=== PATIENT | female | born 1995 | race Caucasian/White ===

== ENCOUNTER 2016-04-17 18:10 | Emergency (ER) | payer MEDICAID ==
--- NOTE | 2016-04-17 19:06 | EDM.PDOC ---
ED HPI GI/ABDOMINAL - General Chief Complaint: Abdominal Pain Stated Complaint: ABD PAIN Time Seen by Provider: 04/17/16 18:45 Source: Reports: Patient History Limitations: Reports: No limitations - History of Present Illness INITIAL COMMENTS - FREE TEXT/NARRATIVE: 21-year-old female who has had lower abdominal pain for 2 years. She's had it ever since she had her tubal ligation. It's lower abdominal, intermittent and was very bad today so she wanted it checked. No diarrhea or nausea vomiting. No radiation of the pain to the back. No dysuria. She was seen in the clinic last week by her primary provider and a gallbladder ultrasound and other tests are being set up for. She does not look to be in any distress at all. Location: other (Lower abdomen, suprapubic area) Quality: Reports: ache, stabbing Severity: mild - Related Data Allergies/ADRs: Allergies Allergy/AdvReac Type Severity Reaction Status Date / Time Fish Containing Products Allergy Hives Verified 04/17/16 19:12 Latex, Natural Rubber Allergy Hives Verified 04/17/16 19:12 Home Meds: Home Meds Nitrofurantoin Macrocrystal [Macrodantin] 1 tab PO BID 04/17/16 [History] Ondansetron [Ondansetron] 1 tab PO Q8H PRN 04/17/16 [History] Past Medical History - Past Health History Medical/Surgical History: Denies Medical/Surgical History Other Hematologic History: microcytic anemia - Past Surgical History HEENT Surgical History: Reports: Adenoidectomy, Tonsillectomy Female Surgical History: Reports: Tubal ligation Social & Family History - Tobacco Use Smoking Status *Q: Current Every Day Smoker Years of Tobacco use: 7 Packs/Tins Daily: 0.5 Used Tobacco, but Quit: No Second Hand Smoke Exposure: Yes - Alcohol Use Days Per Week of Alcohol Use: 0 Number of Drinks Per Day: 3 Total Drinks Per Week: 0 - Recreational Drug Use Recreational Drug Use: No ED ROS GENERAL - Review of Systems Review Of Systems: See Below Constitutional: Denies: fever, chills HEENT: Reports: Other (Advanced dental caries) Respiratory: Denies: shortness of breath Cardiovascular: Denies: Chest pain GI/Abdominal: Reports: Abdominal pain. Denies: Constipation, Diarrhea, Nausea, Vomiting : Reports: no symptoms Neurological: Denies: headache ED EXAM, GI/ABD - Physical Exam Exam: See Below Exam Limited By: No limitations General Appearance: alert, no apparent distress Eyes: bilateral: normal appearance Respiratory/Chest: no respiratory distress, lungs clear Cardiovascular: regular rate, rhythm GI/Abdominal: soft, tenderness (Patient reacts with tenderness to palpation across the lower abdomen but no focal tenderness or guarding) Course - Vital Signs Last Recorded V/S: Last Vital Signs Temp 97.9 F 04/17/16 19:12 Pulse 93 04/17/16 19:12 Resp 16 04/17/16 19:12 BP 121/79 04/17/16 19:12 Pulse Ox 97 04/17/16 19:12 - Orders/Labs/Meds Labs: Laboratory Tests 04/17/16 04/17/16 04/17/16 Range/Units 18:59 19:00 19:08 WBC 5.5 (4.5-11.0) K/uL RBC 4.26 (3.30-5.50) M/uL Hgb 10.9 L (12.0-15.0) g/dL Hct 34.8 L (36.0-48.0) % MCV 82 (80-98) fL MCH 26 L (27-31) pg MCHC 31 L (32-36) % Plt Count 143 L (150-400) K/uL Neut % (Auto) 55 (36-66) % Lymph % (Auto) 32 (24-44) % [place] % (Auto) 11 H (2-6) % Eos % (Auto) 1 L (2-4) % Baso % (Auto) 1 (0-1) % Sodium (140-148) mmol/L Potassium (3.6-5.2) mmol/L Chloride (100-108) mmol/L Carbon Dioxide (21-32) mmol/L Anion Gap (5.0-14.0) mmol/L BUN (7-18) mg/dL Creatinine (0.6-1.0) mg/dL Est Cr Clr Drug Dosing mL/min Estimated GFR (MDRD) (>60) Glucose (74-106) mg/dL Calcium (8.5-10.1) mg/dL Total Bilirubin (0.2-1.0) mg/dL AST (15-37) U/L ALT (12-78) U/L Alkaline Phosphatase (46-116) U/L Total Protein (6.4-8.2) g/dL Albumin (3.4-5.0) g/dL Globulin (2.3-3.5) g/dL Albumin/Globulin Ratio (1.2-2.2) Urine Color Yellow Urine Appearance Slightly cloudy Urine pH 6.0 (4.5-8.0) Ur Specific [place] 1.025 (1.008-1.030) Urine Protein Negative (NEGATIVE) mg/dL Urine Glucose (UA) Normal (NEGATIVE) mg/dL Urine Ketones Negative (NEGATIVE) mg/dL Urine Occult Blood Negative (NEGATIVE) Urine Nitrite Negative (NEGATIVE) Urine Bilirubin Negative (NEGATIVE) Urine Urobilinogen Normal (NORMAL) mg/dL Ur Leukocyte Esterase Negative (NEGATIVE) Urine RBC 0-5 (0-5) Urine WBC 0-5 (0-5) Ur Epithelial Cells Moderate Amorphous Sediment Not seen Urine Bacteria Many Urine Mucus Moderate Urine HCG, Qual Negative Urine Opiates Screen (NEGATIVE) Ur Oxycodone Screen (NEGATIVE) Urine Methadone Screen (NEGATIVE) Ur Propoxyphene Screen (NEGATIVE) Ur Barbiturates Screen (NEGATIVE) Ur Tricyclics Screen (NEGATIVE) Ur Phencyclidine Scrn (NEGATIVE) Ur Amphetamine Screen (NEGATIVE) U Methamphetamines Scrn (NEGATIVE) Urine MDMA Screen (NEGATIVE) U Benzodiazepines Scrn (NEGATIVE) U Cocaine Metab Screen (NEGATIVE) U Marijuana (THC) Screen (NEGATIVE) 04/17/16 04/17/16 Range/Units 19:08 19:09 WBC (4.5-11.0) K/uL RBC (3.30-5.50) M/uL Hgb (12.0-15.0) g/dL Hct (36.0-48.0) % MCV (80-98) fL MCH (27-31) pg MCHC (32-36) % Plt Count (150-400) K/uL Neut % (Auto) (36-66) % Lymph % (Auto) (24-44) % [place] % (Auto) (2-6) % Eos % (Auto) (2-4) % Baso % (Auto) (0-1) % Sodium 142 (140-148) mmol/L Potassium 3.7 (3.6-5.2) mmol/L Chloride 106 (100-108) mmol/L Carbon Dioxide 27 (21-32) mmol/L Anion Gap 8.8 (5.0-14.0) mmol/L BUN 14 D (7-18) mg/dL Creatinine 0.8 D (0.6-1.0) mg/dL Est Cr Clr Drug Dosing 82.53 mL/min Estimated GFR (MDRD) > 60 (>60) Glucose 69 L (74-106) mg/dL Calcium 8.9 (8.5-10.1) mg/dL Total Bilirubin 0.3 (0.2-1.0) mg/dL AST 18 (15-37) U/L ALT 24 (12-78) U/L Alkaline Phosphatase 51 (46-116) U/L Total Protein 7.8 (6.4-8.2) g/dL Albumin 3.9 (3.4-5.0) g/dL Globulin 3.9 H (2.3-3.5) g/dL Albumin/Globulin Ratio 1.0 L (1.2-2.2) Urine Color Urine Appearance Urine pH (4.5-8.0) Ur Specific [place] (1.008-1.030) Urine Protein (NEGATIVE) mg/dL Urine Glucose (UA) (NEGATIVE) mg/dL Urine Ketones (NEGATIVE) mg/dL Urine Occult Blood (NEGATIVE) Urine Nitrite (NEGATIVE) Urine Bilirubin (NEGATIVE) Urine Urobilinogen (NORMAL) mg/dL Ur Leukocyte Esterase (NEGATIVE) Urine RBC (0-5) Urine WBC (0-5) Ur Epithelial Cells Amorphous Sediment Urine Bacteria Urine Mucus Urine HCG, Qual Urine Opiates Screen Negative (NEGATIVE) Ur Oxycodone Screen Negative (NEGATIVE) Urine Methadone Screen Negative (NEGATIVE) Ur Propoxyphene Screen Negative (NEGATIVE) Ur Barbiturates Screen Negative (NEGATIVE) Ur Tricyclics Screen Negative (NEGATIVE) Ur Phencyclidine Scrn Negative (NEGATIVE) Ur Amphetamine Screen Negative (NEGATIVE) U Methamphetamines Scrn Negative (NEGATIVE) Urine MDMA Screen Negative (NEGATIVE) U Benzodiazepines Scrn Negative (NEGATIVE) U Cocaine Metab Screen Negative (NEGATIVE) U Marijuana (THC) Screen Negative (NEGATIVE) - Re-Assessments/Exams Free Text/Narrative Re-Assessment/Exam: 04/17/16 19:05 A UA was obtained, also urine drug screen and urine will be run. CBC and CMP also drawn. 04/17/16 19:43 UA had some bacteria but also epithelial cells, no WBCs or evidence of formation. Likely contamination but then she offered that she was diagnosed with a urinary tract infection on Monday and was given antibiotics, only took one dose yesterday. All her other labs are normal. Copies of the labs were made and she was asked to call her primary tomorrow and continue the antibiotics she was prescribed. Departure - Departure Time of Disposition: 19:56 Disposition: Home, Self-Care 01 Condition: good Clinical Impression: Abdominal pain Qualifiers: Abdominal location: lower abdomen, unspecified Qualified Code(s): R10.30 - Lower abdominal pain, unspecified Instructions: Abdominal Pain, Adult Referrals: Mike Gonzalez MD [Primary Care Provider] - Forms: ED Department Discharge Care Plan Goals: Call your regular provider tomorrow to discuss further testing for your abdominal pain. Take your antibiotic as prescribed.
[2016-04-17 19:11] VITALS: BP 121/79
== END 2016-04-17 19:56 | disposition home or self-care (01) ==
LOC: JP.ED 18:10
DX: R10.30 Lower abdominal pain, unspecified (principal); F17.210 Nicotine dependence, cigarettes, uncomplicated; Z91.040 Latex allergy status; Z79.899 Other long term (current) drug therapy
CPT/HCPCS: 36415; 80053; 80305; 81001; 81025; 85025; 99282; 99284

== ENCOUNTER 2016-12-27 12:25 | Inpatient (IN) | payer MEDICAID ==
[2016-12-27] MEDS ORDERED: Lactated Ringers 1,000 ML IV SCH ×2 (14:00→17:00)
[2016-12-27] MEDS ORDERED: Piperacillin/Tazobactam 4.5 GM in Sodium Chloride 0.9% 100 ML IV SCH (14:00)
[2016-12-27] MEDS ORDERED: Ibuprofen 600 MG Tab PO ONE (14:01)
--- NOTE | 2016-12-27 14:03 | EDM.PDOC ---
ED HPI GENERAL MEDICAL PROBLEM - General Chief Complaint: General Stated Complaint: CHEST PAIN Time Seen by Provider: 12/27/16 13:48 Source of Information: Reports: Patient, RN Notes Reviewed History Limitations: Reports: No Limitations - History of Present Illness INITIAL COMMENTS - FREE TEXT/NARRATIVE: 21-year-old female presents emergency department day complaint of fever and ill feeling, she's been sick for about 48 hours and seems to be progressively worse her biggest complaint is body aches and chills she does complain of some chest discomfort and difficulty breathing - Related Data Allergies Allergy/AdvReac Type Severity Reaction Status Date / Time Fish Containing Products Allergy Hives Verified 04/17/16 19:12 Latex, Natural Rubber Allergy Hives Verified 04/17/16 19:12 Home Meds: Home Meds Ibuprofen [Advil] 2 tab PO Q4H 12/27/16 [History] Past Medical History Cardiovascular History: Reports: Angina Genitourinary History: Reports: UTI, Recurrent 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: Musculoskeletal History: Reports: Fracture Neurological History: Reports: Concussion Other Neuro History: 2010 CONCUSSION FELL OUT OF HAY LOFT Other Hematologic History: microcytic anemia - Past Surgical History HEENT Surgical History: Reports: Adenoidectomy, Tonsillectomy Female Surgical History: Reports: Tubal Ligation Social & Family History - Tobacco Use Smoking Status *Q: Current Some Day Smoker Years of Tobacco use: 13 Packs/Tins Daily: 0.5 Used Tobacco, but Quit: No Second Hand Smoke Exposure: Yes - Caffeine Use Caffeine Use: Reports: Soda - Alcohol Use Days Per Week of Alcohol Use: 0 Number of Drinks Per Day: 3 Total Drinks Per Week: 0 - Recreational Drug Use Recreational Drug Use: No ED ROS GENERAL - Review of Systems Review Of Systems: See Below Constitutional: Reports: Fever, Chills, Weakness HEENT: Reports: No Symptoms Respiratory: Reports: Shortness of Breath Cardiovascular: Reports: Chest Pain GI/Abdominal: Reports: Abdominal Pain : Reports: No Symptoms (Yet) Musculoskeletal: Reports: Other Skin: Reports: No Symptoms (Body aches) Neurological: Reports: No Symptoms ED EXAM, GENERAL - Physical Exam Exam: See Below Free Text/Narrative:: General: Ill-appearing female, alert and oriented x3 HEENT: head is atraumatic normocephalic, eyes pupils equal round reactive to light, sclera clear no conjunctivitis appreciated. Ears tympanic membranes clear and berman landmarks and light reflex are present bilaterally canals are clear. Nose no septal deviation, nares are clear, no blood present. Mouth mucosa is moist and pink no erythema or exudate noted in soft palate, tongue is midline uvula is midline , dentition is intact. Neck: Supple no thyromegaly no tracheal deviation. Nodes: Cervical nodes subclavicular nodes nontender no palpable lymphadenopathy noted. Lungs: clear to auscultation bilaterally with symmetrical respirations, no adventitious noise appreciated. CV: Regular rate and rhythm S1 and S2 appreciated no murmurs rubs or gallops noted. Abdomen: Soft, generalized tenderness to palpation, no palpable masses or organomegaly appreciated, no distention no guarding bowel sounds are present, Neuro: Cranial nerves II through XII grossly intact Skin: Warm and dry, intact Extremities: No lower extremity edema appreciated, pedal pulse is +2. Course - Vital Signs Last Recorded V/S: Last Vital Signs Temp 99.3 F 12/27/16 14:55 Pulse 122 H 12/27/16 14:55 Resp 14 12/27/16 14:55 BP 119/66 12/27/16 14:55 Pulse Ox 98 12/27/16 14:55 - Orders/Labs/Meds Orders: Active Orders 24 hr Category Date Time Status Vital Signs [RC] Q1H Care 12/27/16 13:53 Active CULTURE BLOOD [BC] Urgent Lab 12/27/16 13:35 Received CULTURE BLOOD [BC] Urgent Lab 12/27/16 13:40 Received CULTURE URINE [RM] Urgent Lab 12/27/16 15:00 Uncollected Lactated Ringers [Ringers, Lactated] 1,000 ml Med 12/27/16 14:00 Active IV ASDIRECTED Blood Culture x2 Reflex Set [OM.PC] Urgent Oth 12/27/16 13:53 Ordered Medication Orders Lactated Ringer's (Ringers, Lactated) 1,000 mls @ 999 mls/hr IV ASDIRECTED NICOLA Last Admin: 12/27/16 14:28 Dose: 999 mls/hr Labs: Laboratory Tests 12/27/16 12/27/16 12/27/16 Range/Units 13:35 13:35 13:35 WBC 13.7 H (4.5-11.0) K/uL RBC 4.17 (3.30-5.50) M/uL Hgb 11.3 L (12.0-15.0) g/dL Hct 35.0 L (36.0-48.0) % MCV 84 (80-98) fL MCH 27 (27-31) pg MCHC 32 (32-36) % Plt Count 117 L (150-400) K/uL Neut % (Auto) 86 H (36-66) % Lymph % (Auto) 5 L (24-44) % [place] % (Auto) 9 H (2-6) % Eos % (Auto) 0 L (2-4) % Baso % (Auto) 0 (0-1) % Puncture Site ABG pH (7.350-7.450) ABG pCO2 (35.0-42.0) mmHg ABG pO2 (75.0-100.0) mmHg ABG HCO3 (22.0-26.0) mmol/L ABG Total CO2 (21.0-25.0) mmol/L ABG O2 Saturation (95.0-98.0) % ABG O2 Content (15.0-23.0) %vol ABG Base Excess mm/L ABG Hemoglobin (12.0-16.0) g/dL ABG Oxyhemoglobin % ABG Carboxyhemoglobin (0.0-1.6) % ABG Methemoglobin % Christ Test O2 Delivery Device Sodium 136 L (140-148) mmol/L Potassium 3.3 L (3.6-5.2) mmol/L Chloride 100 (100-108) mmol/L Carbon Dioxide 24 (21-32) mmol/L Anion Gap 15.3 H (5.0-14.0) mmol/L BUN 10 (7-18) mg/dL Creatinine 0.9 (0.6-1.0) mg/dL Est Cr Clr Drug Dosing 69.83 mL/min Estimated GFR (MDRD) > 60 (>60) Glucose 96 (74-106) mg/dL Lactic Acid 2.2 H (0.4-2.0) mmol/L Calcium 8.9 (8.5-10.1) mg/dL Total Bilirubin 1.1 H D (0.2-1.0) mg/dL AST 15 (15-37) U/L ALT 16 (12-78) U/L Alkaline Phosphatase 78 (46-116) U/L C-Reactive Protein 17.24 H (0.0-0.3) mg/dL Total Protein 7.4 (6.4-8.2) g/dL Albumin 3.3 L (3.4-5.0) g/dL Globulin 4.1 H (2.3-3.5) g/dL Albumin/Globulin Ratio 0.8 L (1.2-2.2) Urine Color Urine Appearance Urine pH (4.5-8.0) Ur Specific [place] (1.008-1.030) Urine Protein (NEGATIVE) mg/dL Urine Glucose (UA) (NEGATIVE) mg/dL Urine Ketones (NEGATIVE) mg/dL Urine Occult Blood (NEGATIVE) Urine Nitrite (NEGATIVE) Urine Bilirubin (NEGATIVE) Urine Urobilinogen (NORMAL) mg/dL Ur Leukocyte Esterase (NEGATIVE) Urine RBC (0-5) Urine WBC (0-5) Ur Epithelial Cells Amorphous Sediment Urine Bacteria Urine Mucus Ketones (NEGATIVE) 12/27/16 12/27/16 12/27/16 Range/Units 14:17 14:17 14:22 WBC (4.5-11.0) K/uL RBC (3.30-5.50) M/uL Hgb (12.0-15.0) g/dL Hct (36.0-48.0) % MCV (80-98) fL MCH (27-31) pg MCHC (32-36) % Plt Count (150-400) K/uL Neut % (Auto) (36-66) % Lymph % (Auto) (24-44) % [place] % (Auto) (2-6) % Eos % (Auto) (2-4) % Baso % (Auto) (0-1) % Puncture Site Rt brachial ABG pH 7.446 (7.350-7.450) ABG pCO2 33.2 L (35.0-42.0) mmHg ABG pO2 144.0 H (75.0-100.0) mmHg ABG HCO3 22.5 (22.0-26.0) mmol/L ABG Total CO2 20.5 L (21.0-25.0) mmol/L ABG O2 Saturation 99.1 H (95.0-98.0) % ABG O2 Content 14.8 L (15.0-23.0) %vol ABG Base Excess -0.7 mm/L ABG Hemoglobin 10.6 L (12.0-16.0) g/dL ABG Oxyhemoglobin 98.0 % ABG Carboxyhemoglobin 0.6 (0.0-1.6) % ABG Methemoglobin 0.5 % Christ Test Passed O2 Delivery Device Room air Sodium (140-148) mmol/L Potassium (3.6-5.2) mmol/L Chloride (100-108) mmol/L Carbon Dioxide (21-32) mmol/L Anion Gap (5.0-14.0) mmol/L BUN (7-18) mg/dL Creatinine (0.6-1.0) mg/dL Est Cr Clr Drug Dosing mL/min Estimated GFR (MDRD) (>60) Glucose (74-106) mg/dL Lactic Acid (0.4-2.0) mmol/L Calcium (8.5-10.1) mg/dL Total Bilirubin (0.2-1.0) mg/dL AST (15-37) U/L ALT (12-78) U/L Alkaline Phosphatase (46-116) U/L C-Reactive Protein (0.0-0.3) mg/dL Total Protein (6.4-8.2) g/dL Albumin (3.4-5.0) g/dL Globulin (2.3-3.5) g/dL Albumin/Globulin Ratio (1.2-2.2) Urine Color Brown Urine Appearance Cloudy Urine pH 5.0 (4.5-8.0) Ur Specific [place] 1.020 (1.008-1.030) Urine Protein 30 H (NEGATIVE) mg/dL Urine Glucose (UA) Normal (NEGATIVE) mg/dL Urine Ketones 15 H (NEGATIVE) mg/dL Urine Occult Blood Large (NEGATIVE) Urine Nitrite Positive H (NEGATIVE) Urine Bilirubin Small (NEGATIVE) Urine Urobilinogen 4 (NORMAL) mg/dL Ur Leukocyte Esterase Large (NEGATIVE) Urine RBC 20-30 H (0-5) Urine WBC Packed H (0-5) Ur Epithelial Cells Few Amorphous Sediment Few Urine Bacteria Many Urine Mucus Few Ketones Negative (NEGATIVE) Meds: Medications Generic Name Dose Route Start Last Admin Trade Name Freq PRN Reason Stop Dose Admin Lactated Ringer's 1,000 mls @ 999 mls/hr 12/27/16 14:00 12/27/16 14:28 Ringers, Lactated IV 999 mls/hr ASDIRECTED NICOLA Administration Discontinued Medications Generic Name Dose Route Start Last Admin Trade Name Selam PRN Reason Stop Dose Admin Hydromorphone HCl 1 mg 12/27/16 14:34 12/27/16 14:38 Dilaudid IVPUSH 12/27/16 14:35 1 mg ONETIME ONE Administration Piperacillin/Tazobactam/ 100 mls @ 200 mls/hr 12/27/16 14:30 12/27/16 14:43 Dextrose 4.5 gm/ Premix IV 12/27/16 14:59 200 mls/hr ONETIME ONE Administration Ibuprofen 600 mg 12/27/16 14:01 12/27/16 14:29 Motrin PO 12/27/16 14:02 600 mg ONETIME ONE Administration Ondansetron HCl 4 mg 12/27/16 14:34 12/27/16 14:38 Zofran IVPUSH 12/27/16 14:35 4 mg ONETIME ONE Administration Departure - Departure Time of Disposition: 15:14 Disposition: Home, Self-Care 01 Condition: Good Clinical Impression: Sepsis due to urinary tract infection Sepsis Qualifiers: Sepsis type: sepsis due to unspecified organism Qualified Code(s): A41.9 - Sepsis, unspecified organism - Discharge Information Referrals: PCP,None [Primary Care Provider] - Forms: ED Department Discharge - My Orders Last 24 Hours: My Active Orders 12/27/16 13:35 CULTURE BLOOD [BC] Urgent 12/27/16 13:40 CULTURE BLOOD [BC] Urgent 12/27/16 13:53 Vital Signs [RC] Q1H Blood Culture x2 Reflex Set [OM.PC] Urgent 12/27/16 14:00 Lactated Ringers [Ringers, Lactated] 1,000 ml IV ASDIRECTED 12/27/16 15:00 CULTURE URINE [RM] Urgent - Assessment/Plan Last 24 Hours: My Active Orders 12/27/16 13:35 CULTURE BLOOD [BC] Urgent 12/27/16 13:40 CULTURE BLOOD [BC] Urgent 12/27/16 13:53 Vital Signs [RC] Q1H Blood Culture x2 Reflex Set [OM.PC] Urgent 12/27/16 14:00 Lactated Ringers [Ringers, Lactated] 1,000 ml IV ASDIRECTED 12/27/16 15:00 CULTURE URINE [RM] Urgent Plan: Assessment Acuity = acute Site and laterality = sepsis with positive streptococcal pharyngitis Etiology = probable urinary source Manifestations = fever, chills Location of injury = Home Lab values = WBC elevated at 13.7 consistent leukocytosis ABG 7.44 PCO2 33.20- 144 bicarbonate 22.3 consistent with acute respiratory alkalosis primary potassium low at 2.3 consistent hypokalemia lactic acid elevated at 2.2 consistent lactic acidosis CRP elevated at 17.2 consistent with inflammatory response albumin low at 3.3 consistent with hypoalbuminemia urinalysis reveals 30 protein consistent proteinuria 15 ketones consistent ketonuria positive for nitrates 20-30 rbc's consists with hematuria and packed wbc's consists with pyuria negative ketones chest x-ray shows no acute process blood cultures and urine cultures are pending Plan 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
[2016-12-27] MEDS ORDERED: Piperacillin/Tazobactam/Dext 4.5 GM in Premix Bag 1 BAG IV ONE (14:30)
--- NOTE | 2016-12-27 14:32 | CR ---
Chest 1V Frontal INDICATION: fever FINDINGS: Comparison exams are not available. Negative AP portable chest x-ray.
[2016-12-27] MEDS ORDERED: Ondansetron 4 MG/2 ML SDV IVPUSH ONE (14:34)
[2016-12-27] MEDS ORDERED: HYDROmorphone 1 MG/ML Syringe IVPUSH ONE (14:34)
[2016-12-27] MEDS ORDERED: Lactated Ringers 1,000 ML IV ONE (15:44)
--- NOTE | 2016-12-27 16:06 | PCM.HP ---
H&P History of Present Illness - General Date of Service: 12/27/16 Admit Problem/Dx: Admission Diagnosis/Problem Admission Diagnosis/Problem Sepsis Source of Information: Patient, Provider, RN Notes Reviewed History Limitations: Reports: No Limitations - History of Present Illness Initial Comments - Free Text/Narative: Ms. Quiñones is a 21-year-old woman who is admitted through the emergency department with fever and weakness secondary to complicated urinary tract infection with sepsis. She felt well until yesterday morning, when she got out of bed noted that she felt extremely weak and fell in the bathroom. Since then has had persistent weakness associated with fever and chills. She presented to the clinic today for evaluation and was referred to the emergency department. On evaluation she was noted to be tachycardic with an elevated lactic acid level. Evaluation remarkable for complicated urinary tract infection, probable pyelonephritis and sepsis. 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: Musculoskeletal History: Reports: Fracture Neurological History: Reports: Concussion Other Neuro History: 2010 CONCUSSION FELL OUT OF [facility] Endocrine/Metabolic History: Reports: Diabetes, Gestational Other Hematologic History: microcytic anemia - Past Surgical History HEENT Surgical History: Reports: Adenoidectomy, Tonsillectomy Female Surgical History: Reports: Tubal Ligation Social & Family History - Tobacco Use Smoking Status *Q: Current Some Day Smoker Years of Tobacco use: 13 Packs/Tins Daily: 0.5 Used Tobacco, but Quit: No Second Hand Smoke Exposure: Yes - Caffeine Use Caffeine Use: Reports: Soda - Alcohol Use Days Per Week of Alcohol Use: 0 Number of Drinks Per Day: 3 Total Drinks Per Week: 0 - Recreational Drug Use Recreational Drug Use: No H&P Review of Systems - Review of Systems: Review Of Systems: See Below General: Reports: Fever, Chills, Weakness, Diaphoresis, Decreased Appetite HEENT: Reports: No Symptoms Pulmonary: Reports: No Symptoms Cardiovascular: Reports: No Symptoms Gastrointestinal: Reports: Abdominal Pain, Anorexia. Denies: Black Stool, Bloody Stool, Constipation, Diarrhea, Difficulty Swallowing, Distension Genitourinary: Reports: Dysuria, Frequency, Urgency. Denies: Incontinence, Hematuria, Retention Musculoskeletal: Reports: Back Pain Skin: Reports: No Symptoms Psychiatric: Reports: No Symptoms Neurological: Reports: No Symptoms Hematologic/Lymphatic: Reports: No Symptoms Immunologic: Reports: No Symptoms Exam - Exam Exam: See Below - Vital Signs Vital Signs: Last Vital Signs Temp 100 F 12/27/16 15:46 Pulse 110 H 12/27/16 15:46 Resp 14 12/27/16 15:46 BP 103/67 12/27/16 15:46 Pulse Ox 99 12/27/16 15:46 Weight: 125 lb - Exam Quality Assessment: DVT Prophylaxis General: Alert, Oriented, Cooperative, Moderate Distress HEENT: Conjunctiva Clear, Hearing Intact, Normal Nasal Septum, Posterior Pharynx Clear, Pupils Equal. No: Mucosa Moist & [place] Neck: Supple, Trachea Midline Lungs: Clear to Auscultation, Normal Respiratory Effort Cardiovascular: Regular Rate, Regular Rhythm, Normal S1, Normal S2. No: Systolic Murmur, Diastolic Murmur GI/Abdominal Exam: Normal Bowel Sounds, Soft, No Organomegaly, Tender. No: Distended, Guarding, Rigid, Rebound Back Exam: Normal Inspection, Full Range of Motion, CVA Tenderness (R) Extremities: Normal Inspection, Non-Tender, No Pedal Edema Skin: Warm, Dry, Intact Neurological: Cranial Nerves Intact, Strength Equal Bilateral, Normal Speech, Normal Tone, Sensation Intact. No: Focal Deficit Neuro Extensive - Mental Status: Alert, Oriented x3, Normal Mood/Affect, Normal Cognition, Memory Intact - Patient Data Lab Results Last 24 hrs: Laboratory Results - last 24 hr 12/27/16 12/27/16 12/27/16 Range/Units 13:35 13:35 13:35 WBC 13.7 H (4.5-11.0) K/uL RBC 4.17 (3.30-5.50) M/uL Hgb 11.3 L (12.0-15.0) g/dL Hct 35.0 L (36.0-48.0) % MCV 84 (80-98) fL MCH 27 (27-31) pg MCHC 32 (32-36) % Plt Count 117 L (150-400) K/uL Neut % (Auto) 86 H (36-66) % Lymph % (Auto) 5 L (24-44) % [place] % (Auto) 9 H (2-6) % Eos % (Auto) 0 L (2-4) % Baso % (Auto) 0 (0-1) % Puncture Site ABG pH (7.350-7.450) ABG pCO2 (35.0-42.0) mmHg ABG pO2 (75.0-100.0) mmHg ABG HCO3 (22.0-26.0) mmol/L ABG Total CO2 (21.0-25.0) mmol/L ABG O2 Saturation (95.0-98.0) % ABG O2 Content (15.0-23.0) %vol ABG Base Excess mm/L ABG Hemoglobin (12.0-16.0) g/dL ABG Oxyhemoglobin % ABG Carboxyhemoglobin (0.0-1.6) % ABG Methemoglobin % Christ Test O2 Delivery Device Sodium 136 L (140-148) mmol/L Potassium 3.3 L (3.6-5.2) mmol/L Chloride 100 (100-108) mmol/L Carbon Dioxide 24 (21-32) mmol/L Anion Gap 15.3 H (5.0-14.0) mmol/L BUN 10 (7-18) mg/dL Creatinine 0.9 (0.6-1.0) mg/dL Est Cr Clr Drug Dosing 69.83 mL/min Estimated GFR (MDRD) > 60 (>60) Glucose 96 (74-106) mg/dL Lactic Acid 2.2 H (0.4-2.0) mmol/L Calcium 8.9 (8.5-10.1) mg/dL Total Bilirubin 1.1 H D (0.2-1.0) mg/dL AST 15 (15-37) U/L ALT 16 (12-78) U/L Alkaline Phosphatase 78 (46-116) U/L C-Reactive Protein 17.24 H (0.0-0.3) mg/dL Total Protein 7.4 (6.4-8.2) g/dL Albumin 3.3 L (3.4-5.0) g/dL Globulin 4.1 H (2.3-3.5) g/dL Albumin/Globulin Ratio 0.8 L (1.2-2.2) Urine Color Urine Appearance Urine pH (4.5-8.0) Ur Specific [place] (1.008-1.030) Urine Protein (NEGATIVE) mg/dL Urine Glucose (UA) (NEGATIVE) mg/dL Urine Ketones (NEGATIVE) mg/dL Urine Occult Blood (NEGATIVE) Urine Nitrite (NEGATIVE) Urine Bilirubin (NEGATIVE) Urine Urobilinogen (NORMAL) mg/dL Ur Leukocyte Esterase (NEGATIVE) Urine RBC (0-5) Urine WBC (0-5) Ur Epithelial Cells Amorphous Sediment Urine Bacteria Urine Mucus Ketones (NEGATIVE) 12/27/16 12/27/16 12/27/16 Range/Units 14:17 14: 14:22 WBC (4.5-11.0) K/uL RBC (3.30-5.50) M/uL Hgb (12.0-15.0) g/dL Hct (36.0-48.0) % MCV (80-98) fL MCH (27-31) pg MCHC (32-36) % Plt Count (150-400) K/uL Neut % (Auto) (36-66) % Lymph % (Auto) (24-44) % [place] % (Auto) (2-6) % Eos % (Auto) (2-4) % Baso % (Auto) (0-1) % Puncture Site Rt brachial ABG pH 7.446 (7.350-7.450) ABG pCO2 33.2 L (35.0-42.0) mmHg ABG pO2 144.0 H (75.0-100.0) mmHg ABG HCO3 22.5 (22.0-26.0) mmol/L ABG Total CO2 20.5 L (21.0-25.0) mmol/L ABG O2 Saturation 99.1 H (95.0-98.0) % ABG O2 Content 14.8 L (15.0-23.0) %vol ABG Base Excess -0.7 mm/L ABG Hemoglobin 10.6 L (12.0-16.0) g/dL ABG Oxyhemoglobin 98.0 % ABG Carboxyhemoglobin 0.6 (0.0-1.6) % ABG Methemoglobin 0.5 % Christ Test Passed O2 Delivery Device Room air Sodium (140-148) mmol/L Potassium (3.6-5.2) mmol/L Chloride (100-108) mmol/L Carbon Dioxide (21-32) mmol/L Anion Gap (5.0-14.0) mmol/L BUN (7-18) mg/dL Creatinine (0.6-1.0) mg/dL Est Cr Clr Drug Dosing mL/min Estimated GFR (MDRD) (>60) Glucose (74-106) mg/dL Lactic Acid (0.4-2.0) mmol/L Calcium (8.5-10.1) mg/dL Total Bilirubin (0.2-1.0) mg/dL AST (15-37) U/L ALT (12-78) U/L Alkaline Phosphatase (46-116) U/L C-Reactive Protein (0.0-0.3) mg/dL Total Protein (6.4-8.2) g/dL Albumin (3.4-5.0) g/dL Globulin (2.3-3.5) g/dL Albumin/Globulin Ratio (1.2-2.2) Urine Color Brown Urine Appearance Cloudy Urine pH 5.0 (4.5-8.0) Ur Specific [place] 1.020 (1.008-1.030) Urine Protein 30 H (NEGATIVE) mg/dL Urine Glucose (UA) Normal (NEGATIVE) mg/dL Urine Ketones 15 H (NEGATIVE) mg/dL Urine Occult Blood Large (NEGATIVE) Urine Nitrite Positive H (NEGATIVE) Urine Bilirubin Small (NEGATIVE) Urine Urobilinogen 4 (NORMAL) mg/dL Ur Leukocyte Esterase Large (NEGATIVE) Urine RBC 20-30 H (0-5) Urine WBC Packed H (0-5) Ur Epithelial Cells Few Amorphous Sediment Few Urine Bacteria Many Urine Mucus Few Ketones Negative (NEGATIVE) Result Diagrams: 12/27/16 13:35 12/27/16 13:35 Peña Results Last 24 hrs: Microbiology 12/27/16 14:03 Influenza Type A Antigen Screen - Final Nasopharyngeal Swab - Nare, Left NEGATIVE INFLUENZA A VIRUS AG Influenza Type B Antigen Screen - Final NEGATIVE INFLUENZA B VIRUS AG 12/27/16 14:04 Group A Streptococcus Rapid Screen - Final Throat Positive Strep A Screen *Q Meaningful Use (ADM) - VTE *Q VTE Criteria *Q: - VTE Risk Assess *Q Each Risk Factor Represents 1 Point: Obesity ( BMI > 25 kg/m2), Sepsis Total Score 1 Point Risk Factors: 2 Each Risk Factor Represents 2 Points: None Total Score 2 Point Risk Factors: 0 Each Risk Factor Represents 3 Points: None Total Score 3 Point Risk Factors: 0 Each Risk Factor Represents 5 Points: None Total Score 5 Point Risk Factors: 0 Venous Thromboembolism Risk Factor Score *Q: 2 - Stroke *Q Stroke Criteria *Q: - AMI *Q AMI Criteria *Q: Problem List Initiated/Reviewed/Updated: Yes Orders Last 24hrs: Active Orders 24 hr Category Date Time Status Patient Status Manage Transfer [TRANSFER] Routine ADT 12/27/16 15:49 Active Vital Signs [RC] Q1H Care 12/27/16 13:53 Active CULTURE BLOOD [BC] Urgent Lab 12/27/16 13:35 Received CULTURE BLOOD [BC] Urgent Lab 12/27/16 13:40 Received CULTURE URINE [RM] Urgent Lab 12/27/16 15:30 Received Lactated Ringers [Ringers, Lactated] 1,000 ml Med 12/27/16 14:00 Active IV ASDIRECTED Lactated Ringers [Ringers, Lactated] 1,000 ml Med 12/27/16 15:44 Active IV BOLUS Blood Culture x2 Reflex Set [OM.PC] Urgent Oth 12/27/16 13:53 Ordered Resuscitation Status Routine Resus Stat 12/27/16 15:51 Ordered Medication Orders Lactated Ringer's (Ringers, Lactated) 1,000 mls @ 999 mls/hr IV ASDIRECTED [facility] Last Admin: 12/27/16 14:28 Dose: 999 mls/hr Lactated Ringer's (Ringers, Lactated) 1,000 mls @ 999 mls/hr IV BOLUS ONE Stop: 12/27/16 16:44 Last Admin: 12/27/16 15:58 Dose: 999 mls/hr Assessment/Plan Comment:: ASSESSMENT AND PLAN COMPLICATED URINARY TRACT INFECTION WITH SEPSIS-probable pyelonephritis, symptoms present over the past 36 hours. Evidence of sepsis with tachycardia, fever, elevated white count, and modest elevation in lactic acid level. -Blood and urine cultures obtained in the ED -Vigorous IV fluid replacement per protocol, 30 mL/kg -Recheck lactic acid level later tonight and again in a.m. -Admit to the ICU until stable -Broad-spectrum antibiotic coverage; IV Zosyn and levofloxacin, pending culture results MAINTENANCE ISSUES -DVT prophylaxis; ambulation -GI prophylaxis; not indicated -Robb catheter; not indicated -Nutrition; regular diet -Nicotine dependence; 14 mg nicotinic patch CODE STATUS-FULL CODE ADMISSION STATUS-patient will be admitted to inpatient status, expect at least a 2 night hospital stay for evaluation and management of problems as outlined above. At the time of this admission I do not reasonably expected evaluation and management of this problem will require more than a 96 hour hospital stay. DISPOSITION-anticipate discharge to home after the hospital stay. PRIMARY CARE PROVIDER-
[2016-12-27] MEDS ORDERED: Lactated Ringers 500 ML IV SCH (16:41)
[2016-12-27] MEDS ORDERED: oxyCODONE 5 MG Tab PO PRN (16:41)
[2016-12-27] MEDS ORDERED: Sodium Chloride 0.9% 10 ML Syringe FLUSH PRN (16:41)
[2016-12-27] MEDS ORDERED: Piperacillin/Tazobactam 3.375 GM in Sodium Chloride 0.9% 50 ML IV SCH (16:41)
[2016-12-27] MEDS: Levofloxacin/Dextrose 5%-Water 750 MG in Premix Bag 1 BAG IV SCH (17:13)
[2016-12-27] MEDS: Piperacillin/Tazobactam/Dext 3.375 GM in Premix Bag 1 BAG IV SCH (20:09)
[2016-12-27] MEDS: Lactated Ringers 1,000 ML IV SCH (20:41)
[2016-12-27] MEDS: Ibuprofen 400 MG Tab PO PRN (21:07)
[2016-12-27] MEDS: Acetaminophen 325 MG Tab PO PRN (23:56)
[2016-12-27] MEDS: Ondansetron 4 MG/2 ML SDV IV PRN (23:59)
[2016-12-28] MEDS: Piperacillin/Tazobactam/Dext 3.375 GM in Premix Bag 1 BAG IV SCH ×4 (01:09→19:56)
[2016-12-28] MEDS: Lactated Ringers 1,000 ML IV SCH (04:39)
[2016-12-28] MEDS: Acetaminophen 325 MG Tab PO PRN ×2 (06:19→13:06)
[2016-12-28] MEDS: Ondansetron 4 MG/2 ML SDV IV PRN ×2 (08:47→14:13)
[2016-12-28] MEDS ORDERED: Lactated Ringers 1,000 ML IV SCH (10:00)
--- NOTE | 2016-12-28 10:10 | PCM.PN ---
- General Info Date of Service: 12/28/16 Subjective Update: Ms. Quiñones is modestly improved since admission, white blood cell count has normalized, persistent temperature elevations. Abdominal pain and flank pain have modestly improved. Vital signs have stablized with resolution of sepsis. - Review of Systems General: Reports: Fever, Weakness Pulmonary: Reports: No Symptoms Cardiovascular: Reports: No Symptoms Gastrointestinal: Reports: Abdominal Pain, Decreased Appetite, Nausea, Vomiting Genitourinary: Reports: Flank Pain - Patient Data Vitals - Most Recent: Last Vital Signs Temp 98.3 F 12/28/16 08:40 Pulse 89 12/28/16 08:40 Resp 14 12/28/16 08:40 BP 111/66 12/28/16 08:40 Pulse Ox 94 L 12/28/16 08:40 Weight - Most Recent: 122 lb 14.4 oz I&O - Last 24 Hours: Intake & Output 12/27/16 12/28/16 12/28/16 22:59 06:59 14:59 Intake Total 2350 4695 50 Output Total 800 Balance 2350 3895 50 Lab Results Last 24 Hours: Laboratory Results - last 24 hr 12/27/16 12/28/16 12/28/16 Range/Units 21:06 05:50 05:50 WBC 7.5 (4.5-11.0) K/uL RBC 3.67 (3.30-5.50) M/uL Hgb 10.1 L (12.0-15.0) g/dL Hct 31.1 L (36.0-48.0) % MCV 85 (80-98) fL MCH 28 (27-31) pg MCHC 33 (32-36) % Plt Count 88 L (150-400) K/uL Neut % (Auto) 77 H (36-66) % Lymph % (Auto) 13 L (24-44) % [place] % (Auto) 10 H (2-6) % Eos % (Auto) 0 L (2-4) % Baso % (Auto) 0 (0-1) % Sodium (140-148) mmol/L Potassium (3.6-5.2) mmol/L Chloride (100-108) mmol/L Carbon Dioxide (21-32) mmol/L Anion Gap (5.0-14.0) mmol/L BUN (7-18) mg/dL Creatinine (0.6-1.0) mg/dL Est Cr Clr Drug Dosing mL/min Estimated GFR (MDRD) (>60) Glucose (74-106) mg/dL Lactic Acid 2.1 H 1.1 (0.4-2.0) mmol/L Calcium (8.5-10.1) mg/dL 12/28/16 Range/Units 05:50 WBC (4.5-11.0) K/uL RBC (3.30-5.50) M/uL Hgb (12.0-15.0) g/dL Hct (36.0-48.0) % MCV (80-98) fL MCH (27-31) pg MCHC (32-36) % Plt Count (150-400) K/uL Neut % (Auto) (36-66) % Lymph % (Auto) (24-44) % [place] % (Auto) (2-6) % Eos % (Auto) (2-4) % Baso % (Auto) (0-1) % Sodium 139 L (140-148) mmol/L Potassium 4.1 (3.6-5.2) mmol/L Chloride 106 (100-108) mmol/L Carbon Dioxide 28 (21-32) mmol/L Anion Gap 9.1 (5.0-14.0) mmol/L BUN 8 (7-18) mg/dL Creatinine 0.8 (0.6-1.0) mg/dL Est Cr Clr Drug Dosing 78.56 mL/min Estimated GFR (MDRD) > 60 (>60) Glucose 105 (74-106) mg/dL Lactic Acid (0.4-2.0) mmol/L Calcium 8.5 (8.5-10.1) mg/dL Med Orders - Current: Current Medications Acetaminophen (Tylenol) 650 mg PO Q4H PRN PRN Reason: Pain (Mild 1-3)/fever Last Admin: 12/28/16 06:19 Dose: 650 mg Levofloxacin/Dextrose 750 mg/ (Premix) 150 mls @ 100 mls/hr IV Q24H [facility] Last Admin: 12/27/16 17:13 Dose: 100 mls/hr Piperacillin/Tazobactam/ (Dextrose 3.375 gm/ Premix) 50 mls @ 100 mls/hr IV Q6H [facility] Last Admin: 12/28/16 07:33 Dose: 100 mls/hr Lactated Ringer's (Ringers, Lactated) 1,000 mls @ 75 mls/hr IV ASDIRECTED [facility] Ibuprofen (Motrin) 400 mg PO Q6H PRN PRN Reason: Pain (mild 1-3) Last Admin: 12/27/16 21:07 Dose: 400 mg Ondansetron HCl (Zofran) 4 mg IV Q4H PRN PRN Reason: Nausea/Vomiting Last Admin: 12/28/16 08:47 Dose: 4 mg Oxycodone HCl (Oxycodone) 5 mg PO Q4H PRN PRN Reason: Pain (moderate 4-6) Last Admin: 12/28/16 07:42 Dose: 5 mg Sodium Chloride (Saline Flush) 10 ml FLUSH ASDIRECTED PRN PRN Reason: Keep Vein Open Discontinued Medications Hydromorphone HCl (Dilaudid) 1 mg IVPUSH ONETIME ONE Stop: 12/27/16 14:35 Last Admin: 12/27/16 14:38 Dose: 1 mg Lactated Ringer's (Ringers, Lactated) 1,000 mls @ 999 mls/hr IV ASDIRECTED [facility] Last Admin: 12/27/16 14:28 Dose: 999 mls/hr Piperacillin/Tazobactam/ (Dextrose 4.5 gm/ Premix) 100 mls @ 200 mls/hr IV ONETIME ONE Stop: 12/27/16 14:59 Last Admin: 12/27/16 14:43 Dose: 200 mls/hr Lactated Ringer's (Ringers, Lactated) 1,000 mls @ 999 mls/hr IV BOLUS ONE Stop: 12/27/16 16:44 Last Admin: 12/27/16 15:58 Dose: 999 mls/hr Lactated Ringer's (Ringers, Lactated) 500 mls @ 999 mls/hr IV .BOLUS NICOLA Stop: 12/27/16 17:42 Lactated Ringer's (Ringers, Lactated) 1,000 mls @ 125 mls/hr IV ASDIRECTED [facility] Last Admin: 12/28/16 04:39 Dose: 125 mls/hr Lactated Ringer's (Ringers, Lactated) 1,000 mls @ 250 mls/hr IV ASDIRECTED NICOLA Stop: 12/27/16 21:01 Last Admin: 12/27/16 17:04 Dose: 250 mls/hr Ibuprofen (Motrin) 600 mg PO ONETIME ONE Stop: 12/27/16 14:02 Last Admin: 12/27/16 14:29 Dose: 600 mg Ondansetron HCl (Zofran) 4 mg IVPUSH ONETIME ONE Stop: 12/27/16 14:35 Last Admin: 12/27/16 14:38 Dose: 4 mg - Exam Quality Assessment: DVT Prophylaxis General: Alert, Oriented, Cooperative Lungs: Clear to Auscultation, Normal Respiratory Effort Cardiovascular: Regular Rate, Regular Rhythm, No Murmurs GI/Abdominal Exam: Soft, Tender. No: Distended, Guarding, Rigid, Rebound Extremities: Non-Tender, No Pedal Edema Skin: Warm, Dry - Problem List Review Problem List Initiated/Reviewed/Updated: Yes - My Orders Last 24 Hours: My Active Orders 12/27/16 15:51 Resuscitation Status Routine 12/27/16 16:41 Patient Status [ADT] Routine Ambulate [RC] QID Cardiac Monitoring [RC] .As Directed Intake and Output [RC] QSHIFT Notify Provider Vital Signs [RC] ASDIRECTED Peripheral IV Care [RC] . DIRECTED Up With Assistance [RC] ASDIRECTED Up to Chair [RC] QID VTE/DVT Education [RC] Per Unit Routine Vital Signs [RC] Q2H Acetaminophen [Tylenol] 650 mg PO Q4H PRN Ibuprofen [Motrin] 400 mg PO Q6H PRN Ondansetron [Zofran] 4 mg IV Q4H PRN Sodium Chloride 0.9% [Saline Flush] 10 ml FLUSH ASDIRECTED PRN oxyCODONE 5 mg PO Q4H PRN Peripheral IV Insertion Adult [OM.PC] Routine 12/27/16 17:00 Levofloxacin/Dextrose 5%-Water [Levaquin in D5W 750 MG/150 ML] 750 mg Premix Bag 1 bag IV Q24H 12/27/16 20:00 Piperacillin/Tazobactam/Dext [Zosyn in Dextrose Iso-Osmotic 3.375 GM] 3.375 gm Premix Bag 1 bag IV Q6H 12/27/16 Lunch Regular Diet [DIET] 12/28/16 10:00 Lactated Ringers [Ringers, Lactated] 1,000 ml IV ASDIRECTED 12/29/16 05:00 BASIC METABOLIC PANEL,BMP [CHEM] Timed CBC WITH AUTO DIFF [HEME] Timed HEPATIC FUNCTION PANEL,HFP [CHEM] Timed - Plan Plan:: ASSESSMENT AND PLAN COMPLICATED URINARY TRACT INFECTION WITH SEPSIS-improved since admission with resolution of sepsis. Vital signs have stabilized, she has had persistent intermittent temperature elevations. -Blood and urine cultures obtained in the ED -Decrease IV rate to 75 mL per hour -Change to medical surgical status -Broad-spectrum antibiotic coverage; IV Zosyn and levofloxacin, pending culture results MAINTENANCE ISSUES -DVT prophylaxis; ambulation -GI prophylaxis; not indicated -Robb catheter; not indicated -Nutrition; regular diet -Nicotine dependence; 14 mg nicotinic patch CODE STATUS-FULL CODE ADMISSION STATUS-patient will be admitted to inpatient status, expect at least a 2 night hospital stay for evaluation and management of problems as outlined above. At the time of this admission I do not reasonably expected evaluation and management of this problem will require more than a 96 hour hospital stay. DISPOSITION-anticipate discharge to home after the hospital stay. PRIMARY CARE PROVIDER-
[2016-12-28] MEDS ORDERED: Nicotine Polacrilex 2 MG Gum CHEW PRN (10:19)
[2016-12-28] MEDS: Nicotine 14 MG/24 Hr Patch TRDERM SCH (10:29)
[2016-12-28] MEDS: LORazepam 2 MG/ML MDV IVPUSH PRN ×3 (15:25→23:25)
[2016-12-28] MEDS: Ibuprofen 400 MG Tab PO PRN ×2 (17:14→22:56)
[2016-12-28] MEDS: Levofloxacin/Dextrose 5%-Water 750 MG in Premix Bag 1 BAG IV SCH (17:15)
[2016-12-28] MEDS ORDERED: Acetaminophen 1,000 MG in Premix Bag 1 BAG IV ONE (19:24)
[2016-12-28] MEDS ORDERED: Sodium Chloride 0.9% 1,000 ML IV SCH (19:30)
--- NOTE | 2016-12-28 19:43 | PCM.SN ---
- Free Text/Narrative Note: time; 1919; call from 2 [facility]; patient is febrile temp on 103.1, nausea , not feeling well. a: fever p: orders; IV Tylenol 1 gram, repeat IV Ativan 0.5mg, IV fluids Normal Saline 500ml over 2 hours, then at rate 125ml/hr. labs; Blood Cultures x 2, CBC, BMP continue present plan of care.
[2016-12-29] MEDS: Piperacillin/Tazobactam/Dext 3.375 GM in Premix Bag 1 BAG IV SCH ×2 (01:40→07:19)
[2016-12-29] MEDS: LORazepam 2 MG/ML MDV IVPUSH PRN (07:14)
[2016-12-29] MEDS ORDERED: Acetaminophen 650 MG Supp RECTAL PRN (07:46)
[2016-12-29] MEDS: Sodium Chloride 0.9% 1,000 ML IV SCH ×2 (08:16→17:56)
[2016-12-29] MEDS: Ciprofloxacin in D5W 400 MG in Premix Bag 1 BAG IV SCH ×4 (09:10→21:14)
--- NOTE | 2016-12-29 10:01 | PCM.PN ---
- General Info Date of Service: 12/29/16 Subjective Update: 12/29/16 Pt spiked temperature to 103.1 last night and was febrile to 101 this morning. She continues to feel nauseated and vomited this morning. This morning she complains of a pounding frontal headache and chest pain. Chest pain is left- sided "pressure" that is worse with deep breaths and coughing. Pt denies abdominal or back pain at rest, but is extremely sensitive to light touch. Functional Status: Reports: New Symptoms (Pleuritic chest pain) Pain Score: 5 (5/10 left-sided abdominal and flank pain with gentle touch) - Review of Systems General: Reports: Fever, Weakness, Fatigue, Chills, Appetite (lack of appetite) HEENT: Reports: Headaches Pulmonary: Reports: Cough Cardiovascular: Reports: Chest Pain (pressure, at rest, worse with coughing and deep breaths). Denies: Edema, Lightheadedness Gastrointestinal: Reports: Abdominal Pain, Decreased Appetite Genitourinary: Reports: Flank Pain. Denies: Dysuria, Frequency, Burning, Urgency Musculoskeletal: Reports: Back Pain Skin: Reports: No Symptoms Neurological: Reports: No Symptoms Psychiatric: Reports: No Symptoms - Patient Data Vitals - Most Recent: Last Vital Signs Temp 100.9 F H 12/29/16 07:12 Pulse 89 12/29/16 07:12 Resp 16 12/29/16 07:12 BP 112/60 12/29/16 07:12 Pulse Ox 94 L 12/29/16 07:12 Weight - Most Recent: 122 lb 14.4 oz I&O - Last 24 Hours: Intake & Output 12/28/16 12/29/16 12/29/16 22:59 06:59 14:59 Intake Total 300 2284 250 Output Total 1270 575 Balance -970 1709 250 Lab Results Last 24 Hours: Laboratory Results - last 24 hr 12/28/16 12/28/16 12/28/16 Range/Units 19:31 19:31 19:31 WBC 7.5 (4.5-11.0) K/uL RBC 3.61 (3.30-5.50) M/uL Hgb 9.9 L (12.0-15.0) g/dL Hct 30.4 L (36.0-48.0) % MCV 84 (80-98) fL MCH 27 (27-31) pg MCHC 33 (32-36) % Plt Count 78 L (150-400) K/uL Neut % (Auto) 81 H (36-66) % Lymph % (Auto) 8 L (24-44) % [place] % (Auto) 10 H (2-6) % Eos % (Auto) 0 L (2-4) % Baso % (Auto) 0 (0-1) % Sodium 135 L (140-148) mmol/L Potassium 3.4 L (3.6-5.2) mmol/L Chloride 101 (100-108) mmol/L Carbon Dioxide 24 (21-32) mmol/L Anion Gap 13.4 (5.0-14.0) mmol/L BUN 6 L (7-18) mg/dL Creatinine 0.8 (0.6-1.0) mg/dL Est Cr Clr Drug Dosing 78.56 mL/min Estimated GFR (MDRD) > 60 (>60) Glucose 91 (74-106) mg/dL Lactic Acid 1.2 (0.4-2.0) mmol/L Calcium 8.2 L (8.5-10.1) mg/dL Total Bilirubin (0.2-1.0) mg/dL Direct Bilirubin (0.0-0.2) mg/dL Indirect Bilirubin AST (15-37) U/L ALT (12-78) U/L Alkaline Phosphatase (46-116) U/L Total Protein (6.4-8.2) g/dL Albumin (3.4-5.0) g/dL Globulin (2.3-3.5) g/dL Albumin/Globulin Ratio (1.2-2.2) 12/29/16 12/29/16 Range/Units 04:10 04:10 WBC 6.5 (4.5-11.0) K/uL RBC 3.39 (3.30-5.50) M/uL Hgb 9.2 L (12.0-15.0) g/dL Hct 28.7 L (36.0-48.0) % MCV 85 (80-98) fL MCH 27 (27-31) pg MCHC 32 (32-36) % Plt Count 78 L (150-400) K/uL Neut % (Auto) 69 H (36-66) % Lymph % (Auto) 18 L (24-44) % [place] % (Auto) 13 H (2-6) % Eos % (Auto) 0 L (2-4) % Baso % (Auto) 0 (0-1) % Sodium 140 (140-148) mmol/L Potassium 3.6 (3.6-5.2) mmol/L Chloride 106 (100-108) mmol/L Carbon Dioxide 26 (21-32) mmol/L Anion Gap 7.6 (5.0-14.0) mmol/L BUN 5 L (7-18) mg/dL Creatinine 0.8 (0.6-1.0) mg/dL Est Cr Clr Drug Dosing 78.56 mL/min Estimated GFR (MDRD) > 60 (>60) Glucose 88 (74-106) mg/dL Lactic Acid (0.4-2.0) mmol/L Calcium 7.9 L (8.5-10.1) mg/dL Total Bilirubin 0.6 (0.2-1.0) mg/dL Direct Bilirubin 0.19 (0.0-0.2) mg/dL Indirect Bilirubin 0.41 AST 13 L (15-37) U/L ALT 11 L (12-78) U/L Alkaline Phosphatase 52 (46-116) U/L Total Protein 5.4 L (6.4-8.2) g/dL Albumin 2.0 L (3.4-5.0) g/dL Globulin 3.4 (2.3-3.5) g/dL Albumin/Globulin Ratio 0.6 L (1.2-2.2) Med Orders - Current: Current Medications Acetaminophen (Tylenol) 650 mg PO Q4H PRN PRN Reason: Pain (Mild 1-3)/fever Last Admin: 12/28/16 13:06 Dose: 650 mg Acetaminophen (Tylenol) 650 mg RECTAL Q4H PRN PRN Reason: Pain (moderate 4-6) Last Admin: 12/29/16 08:16 Dose: 650 mg Sodium Chloride (Normal Saline) 1,000 mls @ 125 mls/hr IV ASDIRECTED [facility] Last Admin: 12/29/16 08:16 Dose: 125 mls/hr Ciprofloxacin/Dextrose 400 mg/ (Premix) 200 mls @ 200 mls/hr IV Q12H [facility] Last Admin: 12/29/16 09:10 Dose: 200 mls/hr Ibuprofen (Motrin) 400 mg PO Q6H PRN PRN Reason: Pain (mild 1-3) Last Admin: 12/28/16 22:56 Dose: 400 mg Lorazepam (Ativan) 0.5 mg IVPUSH Q2H PRN PRN Reason: Nausea Last Admin: 12/29/16 07:14 Dose: 0.5 mg Nicotine (Habitrol) 14 mg TRDERM DAILY [facility] Last Admin: 12/28/16 10:29 Dose: 14 mg Nicotine Polacrilex (Nicorelief) 2 mg CHEW Q1H PRN PRN Reason: Other Ondansetron HCl (Zofran) 4 mg IV Q4H PRN PRN Reason: Nausea/Vomiting Last Admin: 12/28/16 14:13 Dose: 4 mg Oxycodone HCl (Oxycodone) 5 mg PO Q4H PRN PRN Reason: Pain (moderate 4-6) Last Admin: 12/28/16 07:42 Dose: 5 mg Sodium Chloride (Saline Flush) 10 ml FLUSH ASDIRECTED PRN PRN Reason: Keep Vein Open Discontinued Medications Hydromorphone HCl (Dilaudid) 1 mg IVPUSH ONETIME ONE Stop: 12/27/16 14:35 Last Admin: 12/27/16 14:38 Dose: 1 mg Lactated Ringer's (Ringers, Lactated) 1,000 mls @ 999 mls/hr IV ASDIRECTED [facility] Last Admin: 12/27/16 14:28 Dose: 999 mls/hr Piperacillin/Tazobactam/ (Dextrose 4.5 gm/ Premix) 100 mls @ 200 mls/hr IV ONETIME ONE Stop: 12/27/16 14:59 Last Admin: 12/27/16 14:43 Dose: 200 mls/hr Lactated Ringer's (Ringers, Lactated) 1,000 mls @ 999 mls/hr IV BOLUS ONE Stop: 12/27/16 16:44 Last Admin: 12/27/16 15:58 Dose: 999 mls/hr Lactated Ringer's (Ringers, Lactated) 500 mls @ 999 mls/hr IV .BOLUS [facility] Stop: 12/27/16 17:42 Lactated Ringer's (Ringers, Lactated) 1,000 mls @ 125 mls/hr IV ASDIRECTED [facility] Last Admin: 12/28/16 04:39 Dose: 125 mls/hr Lactated Ringer's (Ringers, Lactated) 1,000 mls @ 250 mls/hr IV ASDIRECTED [facility] Stop: 12/27/16 21:01 Last Admin: 12/27/16 17:04 Dose: 250 mls/hr Levofloxacin/Dextrose 750 mg/ (Premix) 150 mls @ 100 mls/hr IV Q24H [facility] Last Admin: 12/28/16 17:15 Dose: 100 mls/hr Piperacillin/Tazobactam/ (Dextrose 3.375 gm/ Premix) 50 mls @ 100 mls/hr IV Q6H [facility] Last Admin: 12/29/16 07:19 Dose: 100 mls/hr Lactated Ringer's (Ringers, Lactated) 1,000 mls @ 75 mls/hr IV ASDIRECTED [facility] Last Admin: 12/28/16 14:56 Dose: 75 mls/hr Acetaminophen 1,000 mg/ Premix 100 mls @ 400 mls/hr IV NOW ONE Stop: 12/28/16 19:38 Last Admin: 12/28/16 19:35 Dose: 400 mls/hr Sodium Chloride (Normal Saline) 1,000 mls @ 500 mls/hr IV ASDIRECTED [facility] Last Admin: 12/28/16 19:51 Dose: 500 mls/hr Ibuprofen (Motrin) 600 mg PO ONETIME ONE Stop: 12/27/16 14:02 Last Admin: 12/27/16 14:29 Dose: 600 mg Ondansetron HCl (Zofran) 4 mg IVPUSH ONETIME ONE Stop: 12/27/16 14:35 Last Admin: 12/27/16 14:38 Dose: 4 mg - Exam General: Alert, Oriented, Mild Distress Lungs: Clear to Auscultation, Normal Respiratory Effort. No: Crackles, Wheezing Cardiovascular: Regular Rate, Regular Rhythm, No Murmurs GI/Abdominal Exam: No Distention, No Mass, Tender (Tender to light palpation, especially in epigastric area and LUQ and LLQ). No: Rigid Back Exam: CVA Tenderness (L), Other (Pt winces with light touch along left abdomen and back; pain stops abruptly at midline). No: CVA Tenderness (R) Extremities: Normal Inspection Skin: Warm, Dry, Intact Psy/Mental Status: Alert, Normal Affect, Normal Mood - Problem List Review Problem List Initiated/Reviewed/Updated: Yes - Plan Plan:: ASSESSMENT AND PLAN Uncomplicated acute pyelonephritis-improved since admission with resolution of sepsis. Vital signs have stabilized, though patient continues to be febrile, spiking a temperature to 103.1 yesterday evening. Pt continues to have pounding frontal headache, left-sided "pressure" chest pain worse with coughing and deep breaths (CXR on admission normal), LLQ and epigastric abdominal pain to palpation and left flank pain. -Urine culture grew E. coli broadly sensitive to all antibiotics tested; narrow broad-spectrum antibiotics to ciprofloxacin -400mg ciprofloxacin q12h for 7-14 days (Day 1) -Continue fluids 75mL/hr -Blood cultures pending -Pain management--oxycodone,tylenol, and ibuprofen ordered PRN -Nausea management--lorazepam and ondansetron ordered PRN Anemia and thrombocytopenia present, likely dilutional, though differential is broad -Work-up further as outpt once acute illness has resolved Protenuria and hematuria, may be related to acute pyelonephritis, though differential for protenuria and hematuria is broad -Work-up further as outpatient once acute illness has resolved MAINTENANCE ISSUES -DVT prophylaxis; ambulation -GI prophylaxis; not indicated -Robb catheter; not indicated -Nutrition; regular diet -Nicotine dependence; 14 mg nicotinic patch CODE STATUS-FULL CODE ADMISSION STATUS-patient will be admitted to inpatient status, expect at least a 2 night hospital stay for evaluation and management of problems as outlined above. At the time of this admission I do not reasonably expected evaluation and management of this problem will require more than a 96 hour hospital stay. DISPOSITION-anticipate discharge to home after the hospital stay. PRIMARY CARE PROVIDER- Pt does not have a PCP; she will see Dr. Tellez for follow-up on Jan 06
[2016-12-29] MEDS: Nicotine 14 MG/24 Hr Patch TRDERM SCH (10:21)
--- NOTE | 2016-12-29 12:34 | PCM.PN ---
- General Info Date of Service: 12/29/16 Subjective Update: Ms. Quiñones has continued to experience intermittent temperature elevations as well as weakness with nausea. For the first time this morning is feeling slightly better, white blood cell count remains within normal range and she has been hemodynamically stable. Continued symptoms of chest pain that she reports she gets typically with illness. Pain seemed to be localized to the chest wall. Functional Status: Reports: Pain Controlled, Urinating - Patient Data Vitals - Most Recent: Last Vital Signs Temp 97.7 F 12/29/16 10:55 Pulse 83 12/29/16 10:55 Resp 16 12/29/16 10:55 BP 112/73 12/29/16 10:55 Pulse Ox 93 L 12/29/16 10:55 Weight - Most Recent: 122 lb 14.4 oz I&O - Last 24 Hours: Intake & Output 12/28/16 12/29/16 12/29/16 22:59 06:59 14:59 Intake Total 300 2284 250 Output Total 2506 380 8628 Balance -970 1709 -750 Lab Results Last 24 Hours: Laboratory Results - last 24 hr 12/28/16 12/28/16 12/28/16 Range/Units 19:31 19:31 19:31 WBC 7.5 (4.5-11.0) K/uL RBC 3.61 (3.30-5.50) M/uL Hgb 9.9 L (12.0-15.0) g/dL Hct 30.4 L (36.0-48.0) % MCV 84 (80-98) fL MCH 27 (27-31) pg MCHC 33 (32-36) % Plt Count 78 L (150-400) K/uL Neut % (Auto) 81 H (36-66) % Lymph % (Auto) 8 L (24-44) % [place] % (Auto) 10 H (2-6) % Eos % (Auto) 0 L (2-4) % Baso % (Auto) 0 (0-1) % Sodium 135 L (140-148) mmol/L Potassium 3.4 L (3.6-5.2) mmol/L Chloride 101 (100-108) mmol/L Carbon Dioxide 24 (21-32) mmol/L Anion Gap 13.4 (5.0-14.0) mmol/L BUN 6 L (7-18) mg/dL Creatinine 0.8 (0.6-1.0) mg/dL Est Cr Clr Drug Dosing 78.56 mL/min Estimated GFR (MDRD) > 60 (>60) Glucose 91 (74-106) mg/dL Lactic Acid 1.2 (0.4-2.0) mmol/L Calcium 8.2 L (8.5-10.1) mg/dL Total Bilirubin (0.2-1.0) mg/dL Direct Bilirubin (0.0-0.2) mg/dL Indirect Bilirubin AST (15-37) U/L ALT (12-78) U/L Alkaline Phosphatase (46-116) U/L Total Protein (6.4-8.2) g/dL Albumin (3.4-5.0) g/dL Globulin (2.3-3.5) g/dL Albumin/Globulin Ratio (1.2-2.2) 12/29/16 12/29/16 Range/Units 04:10 04:10 WBC 6.5 (4.5-11.0) K/uL RBC 3.39 (3.30-5.50) M/uL Hgb 9.2 L (12.0-15.0) g/dL Hct 28.7 L (36.0-48.0) % MCV 85 (80-98) fL MCH 27 (27-31) pg MCHC 32 (32-36) % Plt Count 78 L (150-400) K/uL Neut % (Auto) 69 H (36-66) % Lymph % (Auto) 18 L (24-44) % [place] % (Auto) 13 H (2-6) % Eos % (Auto) 0 L (2-4) % Baso % (Auto) 0 (0-1) % Sodium 140 (140-148) mmol/L Potassium 3.6 (3.6-5.2) mmol/L Chloride 106 (100-108) mmol/L Carbon Dioxide 26 (21-32) mmol/L Anion Gap 7.6 (5.0-14.0) mmol/L BUN 5 L (7-18) mg/dL Creatinine 0.8 (0.6-1.0) mg/dL Est Cr Clr Drug Dosing 78.56 mL/min Estimated GFR (MDRD) > 60 (>60) Glucose 88 (74-106) mg/dL Lactic Acid (0.4-2.0) mmol/L Calcium 7.9 L (8.5-10.1) mg/dL Total Bilirubin 0.6 (0.2-1.0) mg/dL Direct Bilirubin 0.19 (0.0-0.2) mg/dL Indirect Bilirubin 0.41 AST 13 L (15-37) U/L ALT 11 L (12-78) U/L Alkaline Phosphatase 52 (46-116) U/L Total Protein 5.4 L (6.4-8.2) g/dL Albumin 2.0 L (3.4-5.0) g/dL Globulin 3.4 (2.3-3.5) g/dL Albumin/Globulin Ratio 0.6 L (1.2-2.2) Med Orders - Current: Current Medications Acetaminophen (Tylenol) 650 mg PO Q4H PRN PRN Reason: Pain (Mild 1-3)/fever Last Admin: 12/28/16 13:06 Dose: 650 mg Acetaminophen (Tylenol) 650 mg RECTAL Q4H PRN PRN Reason: Pain (moderate 4-6) Last Admin: 12/29/16 08:16 Dose: 650 mg Sodium Chloride (Normal Saline) 1,000 mls @ 125 mls/hr IV ASDIRECTED [facility] Last Admin: 12/29/16 08:16 Dose: 125 mls/hr Ciprofloxacin/Dextrose 400 mg/ (Premix) 200 mls @ 200 mls/hr IV Q12H [facility] Last Admin: 12/29/16 09:10 Dose: 200 mls/hr Ibuprofen (Motrin) 400 mg PO Q6H PRN PRN Reason: Pain (mild 1-3) Last Admin: 12/28/16 22:56 Dose: 400 mg Lorazepam (Ativan) 0.5 mg IVPUSH Q2H PRN PRN Reason: Nausea Last Admin: 12/29/16 07:14 Dose: 0.5 mg Nicotine (Habitrol) 14 mg TRDERM DAILY [facility] Last Admin: 12/29/16 10:21 Dose: Not Given Nicotine Polacrilex (Nicorelief) 2 mg CHEW Q1H PRN PRN Reason: Other Ondansetron HCl (Zofran) 4 mg IV Q4H PRN PRN Reason: Nausea/Vomiting Last Admin: 12/28/16 14:13 Dose: 4 mg Oxycodone HCl (Oxycodone) 5 mg PO Q4H PRN PRN Reason: Pain (moderate 4-6) Last Admin: 12/28/16 07:42 Dose: 5 mg Sodium Chloride (Saline Flush) 10 ml FLUSH ASDIRECTED PRN PRN Reason: Keep Vein Open Discontinued Medications Hydromorphone HCl (Dilaudid) 1 mg IVPUSH ONETIME ONE Stop: 12/27/16 14:35 Last Admin: 12/27/16 14:38 Dose: 1 mg Lactated Ringer's (Ringers, Lactated) 1,000 mls @ 999 mls/hr IV ASDIRECTED [facility] Last Admin: 12/27/16 14:28 Dose: 999 mls/hr Piperacillin/Tazobactam/ (Dextrose 4.5 gm/ Premix) 100 mls @ 200 mls/hr IV ONETIME ONE Stop: 12/27/16 14:59 Last Admin: 12/27/16 14:43 Dose: 200 mls/hr Lactated Ringer's (Ringers, Lactated) 1,000 mls @ 999 mls/hr IV BOLUS ONE Stop: 12/27/16 16:44 Last Admin: 12/27/16 15:58 Dose: 999 mls/hr Lactated Ringer's (Ringers, Lactated) 500 mls @ 999 mls/hr IV .BOLUS [facility] Stop: 12/27/16 17:42 Lactated Ringer's (Ringers, Lactated) 1,000 mls @ 125 mls/hr IV ASDIRECTED [facility] Last Admin: 12/28/16 04:39 Dose: 125 mls/hr Lactated Ringer's (Ringers, Lactated) 1,000 mls @ 250 mls/hr IV ASDIRECTED [facility] Stop: 12/27/16 21:01 Last Admin: 12/27/16 17:04 Dose: 250 mls/hr Levofloxacin/Dextrose 750 mg/ (Premix) 150 mls @ 100 mls/hr IV Q24H [facility] Last Admin: 12/28/16 17:15 Dose: 100 mls/hr Piperacillin/Tazobactam/ (Dextrose 3.375 gm/ Premix) 50 mls @ 100 mls/hr IV Q6H [facility] Last Admin: 12/29/16 07:19 Dose: 100 mls/hr Lactated Ringer's (Ringers, Lactated) 1,000 mls @ 75 mls/hr IV ASDIRECTED [facility] Last Admin: 12/28/16 14:56 Dose: 75 mls/hr Acetaminophen 1,000 mg/ Premix 100 mls @ 400 mls/hr IV NOW ONE Stop: 12/28/16 19:38 Last Admin: 12/28/16 19:35 Dose: 400 mls/hr Sodium Chloride (Normal Saline) 1,000 [facility]ls [facility] Admin: 12/28/16 19:51 Dose: 500 mls/hr Ibuprofen (Motrin) 600 mg PO ONETIME ONE Stop: 12/27/16 14:02 Last Admin: 12/27/16 14:29 Dose: 600 mg Ondansetron HCl (Zofran) 4 mg IVPUSH ONETIME ONE Stop: 12/27/16 14:35 Last Admin: 12/27/16 14:38 Dose: 4 mg - Exam Quality Assessment: DVT Prophylaxis General: Alert, Oriented, Cooperative, Mild Distress Lungs: Clear to Auscultation, Normal Respiratory Effort Cardiovascular: Regular Rate, Regular Rhythm, No Murmurs GI/Abdominal Exam: Normal Bowel Sounds, Soft, No Organomegaly, Tender. No: Distended, Guarding, Rigid, Rebound Extremities: Non-Tender, No Pedal Edema Skin: Warm, Dry - Problem List Review Problem List Initiated/Reviewed/Updated: Yes - My Orders Last 24 Hours: My Active Orders 12/28/16 13:30 Sequential Compression Device [OM.PC] Routine 12/28/16 15:12 LORazepam [Ativan] 0.5 mg IVPUSH Q2H PRN 12/29/16 07:46 Acetaminophen [Tylenol] 650 mg RECTAL Q4H PRN 12/29/16 09:00 Ciprofloxacin in D5W [Cipro in D5W 400 MG/200 ML] 400 mg Premix Bag 1 bag IV Q12H - Plan Plan:: ASSESSMENT AND PLAN ACUTE PYELONEPHRITIS-improved since admission with resolution of sepsis. Persistent abdominal and flank pain with recurrent fevers. White blood cell count has normalized. -Blood cultures remain negative, urine culture growing pansensitive Escherichia coli -400mg ciprofloxacin q12h for 7-14 days (Day 1) -Continue fluids 75mL/hr -Blood cultures pending -Pain management--oxycodone,tylenol, and ibuprofen ordered PRN -Nausea management--lorazepam and ondansetron ordered PRN ANEMIA AND THROMBOCYTOPENIA- present-degree of anemia is chronic, duration of thrombocytopenia unknown, likely exacerbated secondary to current infection -Outpatient follow-up and further evaluation if needed PROTENURIA AND HEMATURIA-likely related to current pyelonephritis -Outpatient follow-up to assure resolution MAINTENANCE ISSUES -DVT prophylaxis; ambulation -GI prophylaxis; not indicated -Robb catheter; not indicated -Nutrition; regular diet -Nicotine dependence; 14 mg nicotinic patch CODE STATUS-FULL CODE ADMISSION STATUS-patient will be admitted to inpatient status, expect at least a 2 night hospital stay for evaluation and management of problems as outlined above. At the time of this admission I do not reasonably expected evaluation and management of this problem will require more than a 96 hour hospital stay. DISPOSITION-anticipate discharge to home after the hospital stay. PRIMARY CARE PROVIDER- Pt does not have a PCP; she will see Dr. Tellez for follow-up on Jan 06
[2016-12-29] MEDS: Acetaminophen 325 MG Tab PO PRN (16:25)
[2016-12-29] MEDS: Ondansetron 4 MG/2 ML SDV IV PRN (16:25)
[2016-12-29] MEDS ORDERED: Phenol/Sodium Phenolate Mouthwash 180 ML Bottle ONE (19:20)
[2016-12-30] MEDS: Sodium Chloride 0.9% 1,000 ML IV SCH ×2 (02:48→11:25)
[2016-12-30] MEDS: Ciprofloxacin in D5W 400 MG in Premix Bag 1 BAG IV SCH ×4 (08:33→21:36)
[2016-12-30] MEDS: Nicotine 14 MG/24 Hr Patch TRDERM SCH (09:07)
[2016-12-30] MEDS: Acetaminophen 325 MG Tab PO PRN (11:31)
--- NOTE | 2016-12-30 17:31 | PCM.PN ---
- General Info Date of Service: 12/30/16 Subjective Update: Ms. Quiñones has shown further improvement over the last 24 hours, no significant temperature elevation since yesterday afternoon, vital signs have been stable. Abdominal and flank pain have resolved, continues to experience some nausea with relatively poor oral intake. Functional Status: Reports: Ambulating, Urinating - Review of Systems General: Reports: Weakness. Denies: Fever, Chills Pulmonary: Reports: No Symptoms Cardiovascular: Reports: No Symptoms Gastrointestinal: Reports: No Symptoms - Patient Data Vitals - Most Recent: Last Vital Signs Temp 97.7 F 12/30/16 14:46 Pulse 83 12/30/16 14:46 Resp 16 12/30/16 14:46 BP 117/82 12/30/16 14:46 Pulse Ox 98 12/30/16 14:46 Weight - Most Recent: 122 lb 14.4 oz I&O - Last 24 Hours: Intake & Output 12/30/16 12/30/16 12/30/16 06:59 14:59 22:59 Intake Total 1356 320 Output Total 1000 600 Balance 1356 -680 -600 Lab Results Last 24 Hours: Laboratory Results - last 24 hr 12/30/16 Range/Units 05:59 WBC 5.3 (4.5-11.0) K/uL RBC 3.46 (3.30-5.50) M/uL Hgb 9.3 L (12.0-15.0) g/dL Hct 29.0 L (36.0-48.0) % MCV 84 (80-98) fL MCH 27 (27-31) pg MCHC 32 (32-36) % Plt Count 111 L (150-400) K/uL Peña Results Last 24 Hours: Microbiology 12/28/16 19:41 Aerobic Blood Culture - Preliminary Blood - Venous - Lab Draw NO GROWTH AFTER 1 DAY Anaerobic Blood Culture - Preliminary NO GROWTH AFTER 1 DAY 12/28/16 19:31 Aerobic Blood Culture - Preliminary Blood - Venous NO GROWTH AFTER 1 DAY Anaerobic Blood Culture - Preliminary NO GROWTH AFTER 1 DAY Med Orders - Current: Current Medications Acetaminophen (Tylenol) 650 mg PO Q4H PRN PRN Reason: Pain (Mild 1-3)/fever Last Admin: 12/30/16 11:31 Dose: 650 mg Acetaminophen (Tylenol) 650 mg RECTAL Q4H PRN PRN Reason: Pain (moderate 4-6) Last Admin: 12/29/16 08:16 Dose: 650 mg Ciprofloxacin/Dextrose 400 mg/ (Premix) 200 mls @ 200 mls/hr IV Q12H [facility] Last Admin: 12/30/16 08:33 Dose: 200 mls/hr Ibuprofen (Motrin) 400 mg PO Q6H PRN PRN Reason: Pain (mild 1-3) Last Admin: 12/28/16 22:56 Dose: 400 mg Lorazepam (Ativan) 0.5 mg IVPUSH Q2H PRN PRN Reason: Nausea Last Admin: 12/29/16 07:14 Dose: 0.5 mg Nicotine (Habitrol) 14 mg TRDERM DAILY [facility] Last Admin: 12/30/16 09:07 Dose: Not Given Nicotine Polacrilex (Nicorelief) 2 mg CHEW Q1H PRN PRN Reason: Other Ondansetron HCl (Zofran) 4 mg IV Q4H PRN PRN Reason: Nausea/Vomiting Last Admin: 12/29/16 16:25 Dose: 4 mg Oxycodone HCl (Oxycodone) 5 mg PO Q4H PRN PRN Reason: Pain (moderate 4-6) Last Admin: 12/28/16 07:42 Dose: 5 mg Sodium Chloride (Saline Flush) 10 ml FLUSH ASDIRECTED PRN PRN Reason: Keep Vein Open Discontinued Medications Hydromorphone HCl (Dilaudid) 1 mg IVPUSH ONETIME ONE Stop: 12/27/16 14:35 Last Admin: 12/27/16 14:38 Dose: 1 mg Lactated Ringer's (Ringers, Lactated) 1,000 mls @ 999 mls/hr IV ASDIRECTED [facility] Last Admin: 12/27/16 14:28 Dose: 999 mls/hr Piperacillin/Tazobactam/ (Dextrose 4.5 gm/ Premix) 100 mls @ 200 mls/hr IV ONETIME ONE Stop: 12/27/16 14:59 Last Admin: 12/27/16 14:43 Dose: 200 mls/hr Lactated Ringer's (Ringers, Lactated) 1,000 mls @ 999 mls/hr IV BOLUS ONE Stop: 12/27/16 16:44 Last Admin: 12/27/16 15:58 Dose: 999 mls/hr Lactated Ringer's (Ringers, Lactated) 500 mls @ 999 mls/hr IV .BOLUS NICOLA Stop: 12/27/16 17:42 Lactated Ringer's (Ringers, Lactated) 1,000 mls @ 125 mls/hr IV ASDIRECTED NICOLA Last Admin: 12/28/16 04:39 Dose: 125 mls/hr Lactated Ringer's (Ringers, Lactated) 1,000 mls @ 250 mls/hr IV ASDIRECTED N[facility]OLA Stop: 12/27/16 21:01 Last Admin: 12/27/16 17:04 Dose: 250 mls/hr Levofloxacin/Dextrose 750 mg/ (Premix) 150 mls @ 100 mls/hr IV Q24H [facility] Last Admin: 12/28/16 17:15 Dose: 100 mls/hr Piperacillin/Tazobactam/ (Dextrose 3.375 gm/ Premix) 50 mls @ 100 mls/hr IV Q6H [facility] Last Admin: 12/29/16 07:19 Dose: 100 mls/hr Lactated Ringer's (Ringers, Lactated) 1,000 mls @ 75 mls/hr IV ASDIRECTED [facility] Last Admin: 12/28/16 14:56 Dose: 75 mls/hr Acetaminophen 1,000 mg/ Premix 100 mls @ 400 mls/hr IV NOW ONE Stop: 12/28/16 19:38 Last Admin: 12/28/16 19:35 Dose: 400 mls/hr Sodium Chloride (Normal Saline) 1,000 mls @ 500 mls/hr IV ASDIRECTED [facility] Last Admin: 12/28/16 19:51 Dose: 500 mls/hr Sodium Chloride (Normal Saline) 1,000 mls @ 125 mls/hr IV ASDIRECTED [facility] Last Admin: 12/30/16 11:25 Dose: 125 mls/hr Ibuprofen (Motrin) 600 mg PO ONETIME ONE Stop: 12/27/16 14:02 Last Admin: 12/27/16 14:29 Dose: 600 mg Ondansetron HCl (Zofran) 4 mg IVPUSH ONETIME ONE Stop: 12/27/16 14:35 Last Admin: 12/27/16 14:38 Dose: 4 mg Phenol (Phenaseptic Liquid) Confirm Administered Dose 180 ml .ROUTE .STK-MED ONE Stop: 12/29/16 19:21 Last Admin: 12/29/16 19:35 Dose: Not Given - Exam Quality Assessment: DVT Prophylaxis General: Alert, Oriented, Cooperative, No Acute Distress Lungs: Clear to Auscultation, Normal Respiratory Effort Cardiovascular: Regular Rate, Regular Rhythm, No Murmurs GI/Abdominal Exam: Normal Bowel Sounds, Soft, Non-Tender, No Organomegaly, No Distention Extremities: Non-Tender, No Pedal Edema Skin: Warm, Dry, Intact - Problem List Review Problem List Initiated/Reviewed/Updated: Yes - My Orders Last 24 Hours: My Active Orders 12/30/16 17:28 Convert IV to Saline Lock [OM.PC] Routine - Plan Plan:: ASSESSMENT AND PLAN ACUTE PYELONEPHRITIS-afebrile with resolution of abdominal flank pain -Blood cultures remain negative, urine culture growing pansensitive Escherichia coli -400mg ciprofloxacin q12h for 7-14 days (Day 1) -Saline lock IV -Blood cultures pending -Pain management--oxycodone,tylenol, and ibuprofen ordered PRN -Nausea management--lorazepam and ondansetron ordered PRN ANEMIA AND THROMBOCYTOPENIA- present-degree of anemia is chronic, duration of thrombocytopenia unknown, likely exacerbated secondary to current infection -Outpatient follow-up and further evaluation if needed PROTENURIA AND HEMATURIA-likely related to current pyelonephritis -Outpatient follow-up to assure resolution MAINTENANCE ISSUES -DVT prophylaxis; ambulation -GI prophylaxis; not indicated -Robb catheter; not indicated -Nutrition; regular diet -Nicotine dependence; 14 mg nicotinic patch CODE STATUS-FULL CODE ADMISSION STATUS-patient will be admitted to inpatient status, expect at least a 2 night hospital stay for evaluation and management of problems as outlined above. At the time of this admission I do not reasonably expected evaluation and management of this problem will require more than a 96 hour hospital stay. DISPOSITION-anticipate discharge to home after the hospital stay. PRIMARY CARE PROVIDER- Pt does not have a PCP; she will see Dr. Tellez for follow-up on Jan 06
[2016-12-31] MEDS: Nicotine 14 MG/24 Hr Patch TRDERM SCH (08:58)
[2016-12-31] MEDS ORDERED: Ciprofloxacin 500 MG Tab PO SCH (09:00)
--- NOTE | 2016-12-31 10:29 | PCM.DCSUM1 ---
Discharge Summary - Hospital Course Brief History: Ms. Quiñones is a 21-year-old woman who was admitted through the emergency department with weakness, nausea, dehydration, secondary to pyelonephritis with sepsis - Discharge Data Discharge Date: 12/31/16 Discharge Disposition: Home, Self-Care 01 Condition: Fair - Discharge Diagnosis/Problem(s) (1) Pyelonephritis SNOMED Code(s): 82728463 ICD Code: N12 - TUBULO-INTERSTITIAL NEPHRITIS, NOT SPCF ACUTE OR CHRONIC Status: Acute Priority: High Current Visit: Yes (2) Sepsis SNOMED Code(s): 89911001 ICD Code: A41.9 - SEPSIS, UNSPECIFIED ORGANISM Status: Acute Priority: High Current Visit: Yes Qualifiers: Sepsis type: Escherichia coli Qualified Code(s): A41.51 - Sepsis due to Escherichia coli [E. coli] - Patient Summary/Data Hospital Course: Ms. Quiñones developed symptoms of flank and left sided abdominal pain over a period of 24 hours prior to admission. Symptoms were associated with fever, chills, weakness and poor oral intake. On evaluation in the emergency department was noted to have elevated lactic acid level as well as white blood cell count. She was felt to have sepsis secondary to Prilosec nephritis. She was given vigorous IV fluid replacement and started on broad-spectrum IV antibiotics with levofloxacin and Zosyn pending culture results. Blood and urine cultures were obtained at the time of admission. Urine culture later grew out Escherichia coli which was found to be pansensitive and at that time she was changed to IV ciprofloxacin, and at the time of discharge will be on oral ciprofloxacin for an additional 6 days. Appetite gradually improved during hospital stay and she was eating well prior to discharge with no recurrent symptoms of nausea or vomiting. Flank and abdominal pain had resolved for 24 hours prior to discharge and she had not had a significant temperature elevation for 36 hours, white blood cell count did normalize. Activity will be as tolerated and she will resume her usual diet. Follow-up appointment will be scheduled with primary care at the clinic within one week. - Patient Instructions Diet: Usual Diet as Tolerated Activity: As Tolerated Other/Special Instructions: Patient has follow-up appointment scheduled with primary care next week - Discharge Plan Prescriptions/Med Rec: Ciprofloxacin [Ciprofloxacin HCl] 500 mg PO BIDAC #12 tablet Home Medications: Home Meds Ibuprofen [Advil] 2 tab PO Q4H 12/27/16 [History] Ciprofloxacin [Ciprofloxacin HCl] 500 mg PO BIDAC #12 tablet 12/31/16 [Rx] Referrals: Leonel Fitzgerald MD [Physician] - 01/06/17 1:30 pm - Patient Data Vitals - Most Recent: Last Vital Signs Temp 98 F 12/31/16 07:28 Pulse 64 12/31/16 07:28 Resp 16 12/31/16 07:28 BP 125/67 12/31/16 07:28 Pulse Ox 97 12/31/16 07:28 Weight - Most Recent: 122 lb 14.4 oz I&O - Last 24 hours: Intake & Output 12/30/16 12/31/16 12/31/16 22:59 06:59 14:59 Intake Total 1668 Output Total 600 Balance 1068 BENJAMIN Results - Last 24 hrs: Microbiology 12/28/16 19:41 Aerobic Blood Culture - Preliminary Blood - Venous - Lab Draw NO GROWTH AFTER 2 DAYS Anaerobic Blood Culture - Preliminary NO GROWTH AFTER 2 DAYS 12/28/16 19:31 Aerobic Blood Culture - Preliminary Blood - Venous NO GROWTH AFTER 2 DAYS Anaerobic Blood Culture - Preliminary NO GROWTH AFTER 2 DAYS Med Orders - Current: Current Medications Acetaminophen (Tylenol) 650 mg PO Q4H PRN PRN Reason: Pain (Mild 1-3)/fever Last Admin: 12/30/16 11:31 Dose: 650 mg Acetaminophen (Tylenol) 650 mg RECTAL Q4H PRN PRN Reason: Pain (moderate 4-6) Last Admin: 12/29/16 08:16 Dose: 650 mg Ciprofloxacin (Ciprofloxacin Hcl) 500 mg PO BIDAC [facility] Last Admin: 12/31/16 08:57 Dose: 500 mg Ibuprofen (Motrin) 400 mg PO Q6H PRN PRN Reason: Pain (mild 1-3) Last Admin: 12/28/16 22:56 Dose: 400 mg Lorazepam (Ativan) 0.5 mg IVPUSH Q2H PRN PRN Reason: Nausea Last Admin: 12/29/16 07:14 Dose: 0.5 mg Nicotine (Habitrol) 14 mg TRDERM DAILY [facility] Last Admin: 12/31/16 08:58 Dose: Not Given Nicotine Polacrilex (Nicorelief) 2 mg CHEW Q1H PRN PRN Reason: Other Ondansetron HCl (Zofran) 4 mg IV Q4H PRN PRN Reason: Nausea/Vomiting Last Admin: 12/29/16 16:25 Dose: 4 mg Oxycodone HCl (Oxycodone) 5 mg PO Q4H PRN PRN Reason: Pain (moderate 4-6) Last Admin: 12/28/16 07:42 Dose: 5 mg Sodium Chloride (Saline Flush) 10 ml FLUSH ASDIRECTED PRN PRN Reason: Keep Vein Open Discontinued Medications Hydromorphone HCl (Dilaudid) 1 mg IVPUSH ONETIME ONE Stop: 12/27/16 14:35 Last Admin: 12/27/16 14:38 Dose: 1 mg Lactated Ringer's (Ringers, Lactated) 1,000 mls @ 999 mls/hr IV ASDIRECTED [facility] Last Admin: 12/27/16 14:28 Dose: 999 mls/hr Piperacillin/Tazobactam/ (Dextrose 4.5 gm/ Premix) 100 mls @ 200 mls/hr IV ONETIME ONE Stop: 12/27/16 14:59 Last Admin: 12/27/16 14:43 Dose: 200 mls/hr Lactated Ringer's (Ringers, Lactated) 1,000 mls @ 999 mls/hr IV BOLUS ONE Stop: 12/27/16 16:44 Last Admin: 12/27/16 15:58 Dose: 999 mls/hr Lactated Ringer's (Ringers, Lactated) 500 mls @ 999 mls/hr IV .BOLUS NICOLA Stop: 12/27/16 17:42 Lactated Ringer's (Ringers, Lactated) 1,000 mls @ 125 mls/hr IV ASDIRECTED [facility] Last Admin: 12/28/16 04:39 Dose: 125 mls/hr Lactated Ringer's (Ringers, Lactated) 1,000 mls @ 250 mls/hr IV ASDIRECTED [facility] Stop: 12/27/16 21:01 Last Admin: 12/27/16 17:04 Dose: 250 mls/hr Levofloxacin/Dextrose 750 mg/ (Premix) 150 mls @ 100 mls/hr IV Q24H [facility] Last Admin: 12/28/16 17:15 Dose: 100 mls/hr Piperacillin/Tazobactam/ (Dextrose 3.375 gm/ Premix) 50 mls @ 100 mls/hr IV Q6H [facility] Last Admin: 12/29/16 07:19 Dose: 100 mls/hr Lactated Ringer's (Ringers, Lactated) 1,000 mls @ 75 mls/hr IV ASDIRECTED [facility] Last Admin: 12/28/16 14:56 Dose: 75 mls/hr Acetaminophen 1,000 mg/ Premix 100 mls @ 400 mls/hr IV NOW ONE Stop: 12/28/16 19:38 Last Admin: 12/28/16 19:35 Dose: 400 mls/hr Sodium Chloride (Normal Saline) 1,000 mls @ 500 mls/hr IV ASDIRECTED [facility] Last Admin: 12/28/16 19:51 Dose: 500 mls/hr Sodium Chloride (Normal Saline) 1,000 mls @ 125 mls/hr IV ASDIRECTED [facility] Last Admin: 12/30/16 11:25 Dose: 125 mls/hr Ciprofloxacin/Dextrose 400 mg/ (Premix) 200 mls @ 200 mls/hr IV Q12H [facility] Last Admin: 12/30/16 21:36 Dose: 200 mls/hr Ibuprofen (Motrin) 600 mg PO ONETIME ONE Stop: 12/27/16 14:02 Last Admin: 12/27/16 14:29 Dose: 600 mg Ondansetron HCl (Zofran) 4 mg IVPUSH ONETIME ONE Stop: 12/27/16 14:35 Last Admin: 12/27/16 14:38 Dose: 4 mg Phenol (Phenaseptic Liquid) Confirm Administered Dose 180 ml .ROUTE .STK-MED ONE Stop: 12/29/16 19:21 Last Admin: 12/29/16 19:35 Dose: Not Given *Q Meaningful Use (DIS) - VTE *Q VTE Criteria *Q: - Stroke *Q Stroke Criteria *Q: - AMI *Q AMI Criteria *Q:
[2016-12-31 10:34] VITALS: BP 117/73
== END 2016-12-31 11:10 | disposition home or self-care (01) | DRG 872 ==
LOC: JP.ED 12:25 → JP.ICU 15:49 → JP.MS 12-28 11:42
PROVIDERS: ADMIT Hospitalist; ATTEND Hospitalist
DX: A41.51 Sepsis due to Escherichia coli [E. coli] (principal); N12 Tubulo-interstitial nephritis, not specified as acute or chronic; F17.200 Nicotine dependence, unspecified, uncomplicated; R51 Headache; R07.9 Chest pain, unspecified; Z91.040 Latex allergy status
CPT/HCPCS: 36415; 36600; 71010; 71010-26; 80048; 80053; 80076; 81001; 82009; 82803; 83605; 85025; 85027; 86140; 87040; 87086; 87088; 87186; 87430; 87804; 96361; 96365; 96375; 99285-25; A9270-GY; J0131; J0744; J1170; J1956; J2060; J2405; J2543; J7040; J7120

== ENCOUNTER 2017-03-02 11:34 | Emergency (ER) | payer MEDICAID ==
[2017-03-02 12:09] VITALS: BP 103/80
--- NOTE | 2017-03-02 12:43 | EDM.PDOC ---
ED HPI GENERAL MEDICAL PROBLEM - General Chief Complaint: General Stated Complaint: HIT HEAD FEW DAYS AGO Time Seen by Provider: 03/02/17 12:30 Source of Information: Reports: Patient History Limitations: Reports: No Limitations - History of Present Illness INITIAL COMMENTS - FREE TEXT/NARRATIVE: 21-year-old female who 2 days ago bumped her head on the edge of a door on the upper left forehead, no loss of consciousness and no amnesia since then she's had persistent intermittent headaches, intermittent blurred or double vision and "slurred speech". She thought she should get checked because she's had "8 concussions in the same spot" so called the clinic, they told her to call 911 or come immediately to the emergency room. She's had no nausea or vomiting. She is having intermittent chest pain that "drops her to the floor" but no shortness of breath or cough. She is well-known to the emergency department with frequent visits for a variety of complaints over the past 4 years. 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: Musculoskeletal History: Reports: Fracture Neurological History: Reports: Concussion Other Neuro History: 2010 CONCUSSION FELL OUT OF [facility] Endocrine/Metabolic History: Reports: Diabetes, Gestational Other Hematologic History: microcytic anemia - Past Surgical History HEENT Surgical History: Reports: Adenoidectomy, Tonsillectomy Female Surgical History: Reports: Tubal Ligation Social & Family History - Tobacco Use Smoking Status *Q: Former Smoker Years of Tobacco use: 13 Packs/Tins Daily: 0.5 Used Tobacco, but Quit: Yes Month Tobacco Last Used: 1 Second Hand Smoke Exposure: Yes - Caffeine Use Caffeine Use: Reports: Soda - Alcohol Use Days Per Week of Alcohol Use: 0 Number of Drinks Per Day: 3 Total Drinks Per Week: 0 - Recreational Drug Use Recreational Drug Use: No ED ROS GENERAL - Review of Systems Review Of Systems: See Below Constitutional: Denies: Fever, Chills, Malaise HEENT: Reports: Vision Change. Denies: Nosebleed Respiratory: Denies: Shortness of Breath Cardiovascular: Reports: Chest Pain. Denies: Palpitations Endocrine: Denies: Fatigue GI/Abdominal: Denies: Abdominal Pain, Nausea, Vomiting Musculoskeletal: Reports: No Symptoms Skin: Reports: Bruising (There was a small bruise on her scalp, its gone now) Neurological: Reports: Headache, Change in Speech ED EXAM, GENERAL - Physical Exam Exam: See Below Exam Limited By: No Limitations General Appearance: Alert, No Apparent Distress Eye Exam: Bilateral Eye: Normal Inspection Head: Atraumatic Neck: Other (A small amount of paracervical muscle palpation tenderness) Respiratory/Chest: No Respiratory Distress, Lungs Clear Neurological: Alert, Oriented, No Motor/Sensory Deficits, Other (Romberg negative, no pronator drift) Skin Exam: Warm, Dry Course - Vital Signs Last Recorded V/S: Last Vital Signs Temp 97.7 F 03/02/17 12:06 Pulse 67 03/02/17 12:06 Resp 16 03/02/17 12:06 BP 103/80 03/02/17 12:06 Pulse Ox 99 03/02/17 12:06 - Re-Assessments/Exams Free Text/Narrative Re-Assessment/Exam: 03/02/17 12:[address] scan at this time. She'll be given ketorolac 10 mg every 6- 8 hours to the weekend, and she can recheck Monday or Monday if symptoms are persisting. She can return sooner if worsening such as increased weakness, development of nausea or vomiting or other concerns. If symptoms persist one would have to consider another concussion, an MRI may be worthwhile in the next few weeks. Departure - Departure Time of Disposition: 13:07 Disposition: Home, Self-Care 01 Condition: Good Clinical Impression: Closed head injury Qualifiers: Encounter type: initial encounter Qualified Code(s): S09.90XA - Unspecified injury of head, initial encounter - Discharge Information Instructions: Head Injury, Adult, [id number] Referrals: PCP,None [Primary Care Provider] - Forms: ED Department Discharge Care Plan Goals: Use Toradol every 6-8 hours through the weekend, and return next week if not improving satisfactorily. Return sooner if worsening or concerns.
== END 2017-03-02 13:10 | disposition home or self-care (01) ==
LOC: JP.ED 11:34
DX: S09.90XA Unspecified injury of head, initial encounter (principal); Z87.891 Personal history of nicotine dependence; Z91.013 Allergy to seafood; Z91.040 Latex allergy status; W22.8XXA Striking against or struck by other objects, initial encounter
CPT/HCPCS: 99284

== ENCOUNTER 2018-02-28 20:08 | Emergency (ER) | payer MEDICAID ==
[2018-02-28 20:27] VITALS: BP 133/81
--- NOTE | 2018-02-28 20:33 | EDM.PDOC ---
ED HPI GENERAL MEDICAL PROBLEM - General Chief Complaint: Upper Extremity Injury/Pain Stated Complaint: FALL INJURY LEFT WRIST Time Seen by Provider: 02/28/18 20:20 Source of Information: Reports: Patient, Family History Limitations: Reports: No Limitations - History of Present Illness INITIAL COMMENTS - FREE TEXT/NARRATIVE: 22-year-old female fell onto her left wrist 1 hour ago. She has pain with movement, and swelling dorsally but no significant deformity. Onset: Sudden Duration: Hour(s): (1 hour ago) Location: Reports: Upper Extremity, Left Worsens with: Reports: Movement Associated Symptoms: Reports: No Other Symptoms - Related Data Allergies Allergy/AdvReac Type Severity Reaction Status Date / Time Fish Containing Products Allergy Hives Verified 02/28/18 20:31 Latex, Natural Rubber Allergy Hives Verified 02/28/18 20:31 Home Meds: Home Meds NK [No Known Home Meds] 02/28/18 [History] Past Medical History - Past Health History Medical/Surgical History: Denies Medical/Surgical History HEENT History: Reports: None Cardiovascular History: Reports: Angina Genitourinary History: Reports: UTI, Recurrent 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: Musculoskeletal History: Reports: Fracture Neurological History: Reports: Concussion Other Neuro History: 2010 CONCUSSION FELL OUT OF [facility] Psychiatric History: Reports: Depression Endocrine/Metabolic History: Reports: Diabetes, Gestational Hematologic History: Reports: Other (See Below) Other Hematologic History: microcytic anemia - Infectious Disease History Infectious Disease History: Reports: Chicken Pox - Past Surgical History HEENT Surgical History: Reports: Adenoidectomy, Tonsillectomy Cardiovascular Surgical History: Reports: None Female Surgical History: Reports: Tubal Ligation Endocrine Surgical History: Reports: None Neurological Surgical History: Reports: None Musculoskeletal Surgical History: Reports: None Social & Family History - Family History Cardiac: Reports: None - Caffeine Use Caffeine Use: Reports: Soda Review of Systems - Review of Systems Review Of Systems: See Below Constitutional: Denies: Fever Respiratory: Reports: No Symptoms Cardiovascular: Reports: No Symptoms GI/Abdominal: Reports: No Symptoms Skin: Denies: Bruising, Erythema Neurological: Denies: Headache ED EXAM, GENERAL - Physical Exam Exam: See Below Exam Limited By: No Limitations General Appearance: Alert, No Apparent Distress Head: Atraumatic Neck: Supple Respiratory/Chest: No Respiratory Distress Extremities: Other (Left upper extremity was evaluated, clavicle shoulder and elbow are nontender. She has significant tenderness to palpation of the left wrist and left snuffbox area and noticeable swelling on the extensor surface of the wrist at the distal radius.) Course - Vital Signs Last Recorded V/S: Last Vital Signs Temp 99.3 F 02/28/18 20:35 Pulse 94 02/28/18 20:35 Resp 16 02/28/18 20:35 BP 133/81 02/28/18 20:35 Pulse Ox 99 02/28/18 20:35 - Orders/Labs/Meds Orders: Active Orders 24 hr Category Date Time Status Wrist Comp Min 3V Lt [CR] Stat Exams 02/28/18 20:26 Taken DME for Discharge [COMM] Stat Oth 02/28/18 20:59 Ordered - Re-Assessments/Exams Free Text/Narrative Re-Assessment/Exam: 02/28/18 20:33 Left wrist x-ray was obtained. 02/28/18 20:52 X-ray confirms a minimally displaced transverse distal radius fracture. An Ortho -Glass splint was applied, she was placed in a sling and will recheck with orthopedics at the clinic in the next 24-48 hours for cast placement. Departure - Departure Time of Disposition: 21:06 Disposition: Home, Self-Care 01 Condition: Good Clinical Impression: Radius distal fracture Qualifiers: Encounter type: initial encounter Fracture type: closed Fracture morphology: other extra-articular Laterality: left Qualified Code(s): S52.552A - Other extraarticular fracture of lower end of left radius, initial encounter for closed fracture - Discharge Information Instructions: Wrist Fracture Treated With Immobilization Referrals: PCP,None [Primary Care Provider] - Forms: ED Department Discharge Care Plan Goals: Recheck at the clinic orthopedics in the next 1-2 days for cast placement and to establish follow-up care. Regular ibuprofen every 6 hours will help. Keep arm in sling until recheck. - My Orders Last 24 Hours: My Active Orders 02/28/18 20:26 Wrist Comp Min 3V Lt [CR] Stat 02/28/18 20:59 DME for Discharge [COMM] Stat - Assessment/Plan Last 24 Hours: My Active Orders 02/28/18 20:26 Wrist Comp Min 3V Lt [CR] Stat 02/28/18 20:59 DME for Discharge [COMM] Stat
== END 2018-02-28 21:06 | disposition home or self-care (01) ==
LOC: JP.ED 20:08
DX: S52.552A Other extraarticular fracture of lower end of left radius, initial encounter for closed fracture (principal); Z91.013 Allergy to seafood; Z91.040 Latex allergy status; W19.XXXA Unspecified fall, initial encounter
CPT/HCPCS: 29125; 73110-LT; 99284-25

== ENCOUNTER 2019-01-17 07:46 | Emergency (ER) | payer MEDICAID ==
[2019-01-17 08:01] VITALS: BP 120/79; PULSE 66
[2019-01-17] MEDS ORDERED: HYDROmorphone 0.5 MG/0.5 ML Syringe IVPUSH ONE (08:22)
--- NOTE | 2019-01-17 08:26 | EDM.PDOC ---
ED HPI GENERAL MEDICAL PROBLEM - General Chief Complaint: Abdominal Pain Stated Complaint: ABD PAIN Time Seen by Provider: 01/17/19 08:15 Source of Information: Reports: Patient, Family History Limitations: Reports: No Limitations - History of Present Illness INITIAL COMMENTS - FREE TEXT/NARRATIVE: 23-year-old female with lower abdominal pain for the past 5 to 7 days, becoming more concentrated in the right lower quadrant. Waking her up from sleep and becoming more symptomatic with movement. Denies nausea or vomiting, bowels are otherwise normal, she thinks she had a fever last night. No traumatic injury. Her only past surgery was tubal ligation. Onset: Gradual Duration: Day(s): (7 days) Location: Reports: Abdomen (Especially right lower quadrant) Associated Symptoms: Reports: Fever/Chills, Loss of Appetite. Denies: Headaches , Nausea/Vomiting, Shortness of Breath, Weakness Lower Abdominal Pain Score (Numeric/FACES): 6 - Related Data Allergies Allergy/AdvReac Type Severity Reaction Status Date / Time Fish Containing Products Allergy Hives Verified 02/28/18 20:31 Latex, Natural Rubber Allergy Hives Verified 02/28/18 20:31 Home Meds: Home Meds Ibuprofen 400 mg PO ASDIRECTED 03/01/18 [History] Past Medical History - Past Health History Medical/Surgical History: Denies Medical/Surgical History HEENT History: Reports: None Cardiovascular History: Reports: Angina Gastrointestinal History: Reports: Other (See Below) Other Gastrointestinal History: abd pain today Genitourinary History: Reports: UTI, Recurrent 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: Musculoskeletal History: Reports: Fracture, Other (See Below) Other Musculoskeletal History: L wrist Neurological History: Reports: Concussion Other Neuro History: 2010 CONCUSSION FELL OUT OF [employer]FT Psychiatric History: Reports: Depression Endocrine/Metabolic History: Reports: Diabetes, Gestational Hematologic History: Reports: Other (See Below) Other Hematologic History: microcytic anemia - Infectious Disease History Infectious Disease History: Reports: Chicken Pox - Past Surgical History HEENT Surgical History: Reports: Adenoidectomy, Tonsillectomy Female Surgical History: Reports: Tubal Ligation Neurological Surgical History: Reports: None Social & Family History - Family History Cardiac: Reports: None - Tobacco Use Smoking Status *Q: Former Smoker Used Tobacco, but Quit: Yes Month/Year Tobacco Last Used: 12/14/18 - Caffeine Use Caffeine Use: Reports: None - Recreational Drug Use Recreational Drug Use: No ED ROS GENERAL - Review of Systems Review Of Systems: See Below Constitutional: Reports: Fever, Malaise HEENT: Reports: No Symptoms Respiratory: Denies: Shortness of Breath Cardiovascular: Denies: Chest Pain GI/Abdominal: Reports: Abdominal Pain. Denies: Constipation, Diarrhea, Vomiting Skin: Reports: No Symptoms Neurological: Denies: Headache ED EXAM, GI/ABD - Physical Exam Exam: See Below Exam Limited By: No Limitations General Appearance: Alert, No Apparent Distress (Looks uncomfortable but not distressed) Eyes: Bilateral: Normal Appearance (No jaundice) Head: Atraumatic Respiratory/Chest: No Respiratory Distress, Lungs Clear Cardiovascular: Regular Rate, Rhythm GI/Abdominal Exam: Normal Bowel Sounds, Soft, Tender (Very tender with guarding across the lower abdomen, positive rebound tenderness, present bilaterally but more prominent on the right) Extremities: Normal Inspection Neurological: Alert, Oriented Skin Exam: Warm, Dry Course - Vital Signs Last Recorded V/S: Last Vital Signs Temp 99.2 F 01/17/19 07:58 Pulse 66 01/17/19 07:58 Resp 18 01/17/19 07:58 BP 120/79 01/17/19 07:58 Pulse Ox 98 01/17/19 07:58 - Orders/Labs/Meds Labs: Laboratory Tests 01/17/19 01/17/19 01/17/19 Range/Units 08:25 08:36 08:36 WBC 4.5 (4.5-11.0) K/uL RBC 4.29 (3.30-5.50) M/uL Hgb 11.5 L (12.0-15.0) g/dL Hct 36.5 (36.0-48.0) % MCV 85 (80-98) fL MCH 27 (27-31) pg MCHC 32 (32-36) % Plt Count 134 L (150-400) K/uL Neut % (Auto) 57 (36-66) % Lymph % (Auto) 27 (24-44) % [place] % (Auto) 8 H (2-6) % Eos % (Auto) 8 H (2-4) % Baso % (Auto) 0 (0-1) % Sodium 137 L (140-148) mmol/L Potassium 3.7 (3.6-5.2) mmol/L Chloride 104 (100-108) mmol/L Carbon Dioxide 22 (21-32) mmol/L Anion Gap 14.7 H (5.0-14.0) mmol/L BUN 10 (7-18) mg/dL Creatinine 0.7 (0.6-1.0) mg/dL Est Cr Clr Drug Dosing 97.17 mL/min Estimated GFR (MDRD) > 60 (>60) Glucose 97 (74-106) mg/dL Calcium 8.8 (8.5-10.1) mg/dL Total Bilirubin 0.3 (0.2-1.0) mg/dL AST 18 (15-37) U/L ALT 26 (12-78) U/L Alkaline Phosphatase 64 (46-116) U/L Total Protein 7.3 (6.4-8.2) g/dL Albumin 3.5 (3.4-5.0) g/dL Globulin 3.8 H (2.3-3.5) g/dL Albumin/Globulin Ratio 0.9 L (1.2-2.2) Urine HCG, Qual Negative Meds: Medications Discontinued Medications Generic Name Dose Route Start Last Admin Trade Name Freq PRN Reason Stop Dose Admin Hydromorphone HCl 0.5 mg 01/17/19 08:22 01/17/19 08:39 Dilaudid IVPUSH 01/17/19 08:23 0.5 mg ONETIME ONE Administration Sodium Chloride 1,000 mls @ 500 mls/hr 01/17/19 08:30 01/17/19 08:39 Normal Saline IV 500 mls/hr ASDIRECTED NICOLA Administration Sodium Chloride 75 mls @ 3 mls/sec 01/17/19 09:00 01/17/19 09:01 Normal Saline IV 01/17/19 09:01 3 mls/sec ASDIRECTED NICOLA Administration Iopamidol 100 ml 01/17/19 08:53 01/17/19 09:01 Isovue-300 (61%) IV 01/18/19 08:54 100 ml . DIRECTED PRN Administration RADIOLOGY EXAM Ketorolac Tromethamine 30 mg 01/17/19 10:07 01/17/19 10:12 Toradol IVPUSH 01/17/19 10:08 30 mg ONETIME ONE Administration - Re-Assessments/Exams Free Text/Narrative Re-Assessment/Exam: 01/17/19 08:25 This patient likely has ovarian pathology or appendicitis. An IV will be started, she will be given 500 cc of normal saline an hour and 0.5 mg of IV Dilaudid. CBC CMP UA and urine will be obtained. If is negative which is expected with her past tubal ligation, CT of the abdomen will be obtained. 01/17/19 09:48 test was negative, white count was normal. CT of the abdomen and pelvis with IV contrast was obtained and results are pending. 01/17/19 10:08 CT indicated a recently ruptured left ovarian cyst. Patient was then given 30 mg of IV Toradol, will continue on 10 mg 3 times a day for the next 3 days and recheck at the clinic as planned. Departure - Departure Time of Disposition: 10:25 Disposition: Home, Self-Care 01 Clinical Impression: Ruptured cyst of left ovary - Discharge Information Instructions: Ovarian Cyst, [id number] Referrals: PCP,None [Primary Care Provider] - Forms: ED Department Discharge Care Plan Goals: Take 1 pill of ketorolac every 6 hours, and recheck tomorrow
[2019-01-17] MEDS ORDERED: Sodium Chloride 0.9% 1,000 ML IV SCH (08:30)
[2019-01-17] MEDS ORDERED: Iopamidol 612 MG/ML 100 ML Bottle IV PRN (08:53)
[2019-01-17] MEDS ORDERED: Sodium Chloride 0.9% 75 ML IV SCH (09:00)
--- NOTE | 2019-01-17 09:55 | CRLCT ---
INDICATION: Lower abdominal pain. COMPARISON: none TECHNIQUE: CT volumetric acquisition was performed of the abdomen and pelvis during intravenous infusion of 100 cc of Isovue-300 nonionic intravenous contrast. FINDINGS: The CT images demonstrate a normal appearance of the lung bases. There is no evidence of pleural or pericardial fluid. The patient`s liver and spleen demonstrate normal size and uniform enhancement. The gallbladder and bile ducts appear normal. There is no evidence of inflammation within the pancreas. The adrenal glands appear normal. There is symmetric uniform enhancement of the kidneys with no evidence of pyelonephritis, calculus or obstruction. The abdominal aorta appears normal and there is no evidence of retroperitoneal lymphadenopathy. The small intestine and colon appears normal. There is trace amount of free fluid in the cul-de-sac and there is rim enhancement within an involuting cyst within the left ovary. The right ovary and uterus appear normal. Urinary bladder appears normal. IMPRESSION: CT findings indicate recent rupture of a left ovarian cyst. Dictated by Nando Perez MD @ 01/17/2019 9:53:24 AM Please note that all CT scans at this facility use dose modulation, iterative reconstruction, and/or weight-based dosing when appropriate to reduce radiation dose to as low as reasonably achievable. Dictated by: Nando Perez MD @ 01/17/2019 09:53:33 (Electronically Signed)
[2019-01-17] MEDS ORDERED: Ketorolac 30 MG/ML SDV IVPUSH ONE (10:07)
== END 2019-01-17 10:24 | disposition home or self-care (01) ==
LOC: JP.ED 07:46
DX: N83.202 Unspecified ovarian cyst, left side (principal); Z87.891 Personal history of nicotine dependence; Z91.040 Latex allergy status; Z91.013 Allergy to seafood
CPT/HCPCS: 36415; 74177; 80053; 81025; 85025; 96374; 96375; 99284; J1170; J1885; J7030; Q9967; J7050

== ENCOUNTER 2019-04-07 23:04 | Emergency (ER) | payer MEDICAID ==
[2019-04-07 23:22] VITALS: PULSE 117
[2019-04-07] MEDS ORDERED: Sodium Chloride 0.9% 10 ML Syringe FLUSH PRN (23:33)
[2019-04-07] MEDS ORDERED: Prochlorperazine 10 MG/2 ML SDV IVPUSH ONE (23:35)
[2019-04-07] MEDS ORDERED: fentaNYL 100 MCG/2 ML SDV IVPUSH ONE (23:35)
--- NOTE | 2019-04-07 23:40 | EDM.PDOC ---
ED HPI GENERAL MEDICAL PROBLEM - General Chief Complaint: Abdominal Pain Stated Complaint: VOMIITNG,STOMACH, CHEST PAIN Time Seen by Provider: 04/07/19 23:28 Source of Information: Reports: Patient, Family, RN Notes Reviewed History Limitations: Reports: Physical Impairment - History of Present Illness INITIAL COMMENTS - FREE TEXT/NARRATIVE: 24-year-old female presents emergency department today with complaint of abdominal pain, she is postop day 12 vaginal hysterectomy states she did okay postsurgically then developed severe abdominal pain this morning is progressively gotten worse with nausea and vomiting has had low-grade fevers 99 100 range. 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: Other (see below) Other Treatments TERRAZZO LABORER: zofran Abdomen Pain Score (Numeric/FACES): 6 - Related Data Allergies Allergy/AdvReac Type Severity Reaction Status Date / Time Fish Containing Products Allergy Hives Verified 02/28/18 20:31 Latex, Natural Rubber Allergy Hives Verified 02/28/18 20:31 Home Meds: Home Meds Ibuprofen 400 mg PO ASDIRECTED 03/01/18 [History] Ondansetron [Ondansetron ODT] 4 mg PO ASDIRECTED 04/07/19 [History] Past Medical History Gastrointestinal History: Reports: Other (See Below) Other Gastrointestinal History: abd pain today Genitourinary History: Reports: UTI, Recurrent 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: Musculoskeletal History: Reports: Fracture, Other (See Below) Other Musculoskeletal History: L wrist Neurological History: Reports: Concussion Other Neuro History: 2010 CONCUSSION FELL OUT OF [employer] Psychiatric History: Reports: Depression Endocrine/Metabolic History: Reports: Diabetes, Gestational Hematologic History: Reports: Other (See Below) Other Hematologic History: microcytic anemia - Infectious Disease History Infectious Disease History: Reports: Chicken Pox - Past Surgical History HEENT Surgical History: Reports: Adenoidectomy, Tonsillectomy Female Surgical History: Reports: Hysterectomy, Tubal Ligation, Other (See Below) Other Female Surgeries/Procedures: 03/26/[address] [facility] in . Neurological Surgical History: Reports: None Social & Family History - Family History Cardiac: Reports: None - Caffeine Use Caffeine Use: Reports: None ED ROS GENERAL - Review of Systems Review Of Systems: See Below Constitutional: Reports: Fever, Chills HEENT: Reports: No Symptoms Respiratory: Reports: Shortness of Breath Cardiovascular: Reports: Chest Pain, Dyspnea on Exertion GI/Abdominal: Reports: Abdominal Pain, Flatus, Nausea, Vomiting : Reports: No Symptoms Musculoskeletal: Reports: No Symptoms Skin: Reports: No Symptoms Neurological: Reports: No Symptoms ED EXAM, GI/ABD - Physical Exam Exam: See Below Exam Limited By: Physical Impairment General Appearance: Alert, Moderate Distress Respiratory/Chest: No Respiratory Distress, Lungs Clear, Normal Breath Sounds, No Accessory Muscle Use, Chest Non-Tender Cardiovascular: Regular Rate, Rhythm, No Murmur GI/Abdominal Exam: Soft, Tender (Generalized tenderness to palpation) Back Exam: Normal Inspection, Full Range of Motion. No: CVA Tenderness (R), CVA Tenderness (L) Extremities: Normal Inspection, Normal Range of Motion, No Pedal Edema Course - Vital Signs Last Recorded V/S: Last Vital Signs Temp 99.6 F 04/07/19 23:15 Pulse 117 H 04/07/19 23:15 Resp 19 04/07/19 23:15 BP Pulse Ox 98 04/07/19 23:15 - Orders/Labs/Meds Orders: Active Orders 24 hr Category Date Time Status Peripheral IV Care [RC] . DIRECTED Care 04/07/19 23:34 Active Lactated Ringers [Ringers, Lactated] 1,000 ml Med 04/07/19 23:45 Active IV ASDIRECTED Sodium Chloride 0.9% [Saline Flush] Med 04/07/19 23:33 Active 10 ml FLUSH ASDIRECTED PRN Peripheral IV Insertion Adult [OM.PC] Urgent Oth 04/07/19 23:33 Ordered Medication Orders Lactated Ringer's (Ringers, Lactated) 1,000 mls @ 999 mls/hr IV ASDIRECTED NICOLA Last Admin: 04/07/19 23:56 Dose: 999 mls/hr Sodium Chloride (Saline Flush) 10 ml FLUSH ASDIRECTED PRN PRN Reason: Keep Vein Open Last Admin: 04/07/19 23:57 Dose: 10 ml Labs: Laboratory Tests 04/07/19 04/07/19 04/07/19 Range/Units 23:45 23:45 23:45 WBC 11.0 (4.5-11.0) K/uL RBC 4.09 (3.30-5.50) M/uL Hgb 11.2 L (12.0-15.0) g/dL Hct 35.1 L (36.0-48.0) % MCV 86 (80-98) fL MCH 27 (27-31) pg MCHC 32 (32-36) % Plt Count 182 (150-400) K/uL Neut % (Auto) 80 H (36-66) % Lymph % (Auto) 11 L (24-44) % [place] % (Auto) 6 (2-6) % Eos % (Auto) 4 (2-4) % Baso % (Auto) 0 (0-1) % Sodium 147 (140-148) mmol/L Potassium 3.7 (3.6-5.2) mmol/L Chloride 108 (100-108) mmol/L Carbon Dioxide 25 (21-32) mmol/L Anion Gap 14.1 H (5.0-14.0) mmol/L BUN 7 (7-18) mg/dL Creatinine 0.9 (0.6-1.0) mg/dL Est Cr Clr Drug Dosing 71.48 mL/min Estimated GFR (MDRD) > 60 (>60) Glucose 79 (74-106) mg/dL Lactic Acid 2.0 (0.4-2.0) mmol/L Calcium 8.6 (8.5-10.1) mg/dL Total Bilirubin 0.3 (0.2-1.0) mg/dL AST 16 (15-37) U/L ALT 20 (12-78) U/L Alkaline Phosphatase 81 (46-116) U/L Troponin I < 0.017 (0.000-0.056) ng/mL Total Protein 7.7 (6.4-8.2) g/dL Albumin 3.6 (3.4-5.0) g/dL Globulin 4.1 H (2.3-3.5) g/dL Albumin/Globulin Ratio 0.9 L (1.2-2.2) Lipase 108 (73-393) U/L Urine Color (YELLOW) Urine Appearance (CLEAR) Urine pH (5.0-8.0) Ur Specific [place] (1.008-1.030) Urine Protein (NEGATIVE) mg/dL Urine Glucose (UA) (NEGATIVE) mg/dL Urine Ketones (NEGATIVE) mg/dL Urine Occult Blood (NEGATIVE) Urine Nitrite (NEGATIVE) Urine Bilirubin (NEGATIVE) Urine Urobilinogen (0.2-1.0) EU/dL Ur Leukocyte Esterase (NEGATIVE) Urine RBC (0-5) Urine WBC (0-5) Ur Epithelial Cells Amorphous Sediment Urine Bacteria Urine Mucus Urine HCG, Qual Urine Opiates Screen (NEGATIVE) Ur Oxycodone Screen (NEGATIVE) Urine Methadone Screen (NEGATIVE) Ur Propoxyphene Screen (NEGATIVE) Ur Barbiturates Screen (NEGATIVE) Ur Tricyclics Screen (NEGATIVE) Ur Phencyclidine Scrn (NEGATIVE) Ur Amphetamine Screen (NEGATIVE) U Methamphetamines Scrn (NEGATIVE) Urine MDMA Screen (NEGATIVE) U Benzodiazepines Scrn (NEGATIVE) U Cocaine Metab Screen (NEGATIVE) U Marijuana (THC) Screen (NEGATIVE) 04/08/19 04/08/19 04/08/19 Range/Units 00:30 00:30 00:30 WBC (4.5-11.0) K/uL RBC (3.30-5.50) M/uL Hgb (12.0-15.0) g/dL Hct (36.0-48.0) % MCV (80-98) fL MCH (27-31) pg MCHC (32-36) % Plt Count (150-400) K/uL Neut % (Auto) (36-66) % Lymph % (Auto) (24-44) % [place] % (Auto) (2-6) % Eos % (Auto) (2-4) % Baso % (Auto) (0-1) % Sodium (140-148) mmol/L Potassium (3.6-5.2) mmol/L Chloride (100-108) mmol/L Carbon Dioxide (21-32) mmol/L Anion Gap (5.0-14.0) mmol/L BUN (7-18) mg/dL Creatinine (0.6-1.0) mg/dL Est Cr Clr Drug Dosing mL/min Estimated GFR (MDRD) (>60) Glucose (74-106) mg/dL Lactic Acid (0.4-2.0) mmol/L Calcium (8.5-10.1) mg/dL Total Bilirubin (0.2-1.0) mg/dL AST (15-37) U/L ALT (12-78) U/L Alkaline Phosphatase (46-116) U/L Troponin I (0.000-0.056) ng/mL Total Protein (6.4-8.2) g/dL Albumin (3.4-5.0) g/dL Globulin (2.3-3.5) g/dL Albumin/Globulin Ratio (1.2-2.2) Lipase (73-393) U/L Urine Color Yellow (YELLOW) Urine Appearance Clear (CLEAR) Urine pH 7.5 (5.0-8.0) Ur Specific [place] 1.020 (1.008-1.030) Urine Protein Negative (NEGATIVE) mg/dL Urine Glucose (UA) Negative (NEGATIVE) mg/dL Urine Ketones Negative (NEGATIVE) mg/dL Urine Occult Blood Moderate H (NEGATIVE) Urine Nitrite Negative (NEGATIVE) Urine Bilirubin Negative (NEGATIVE) Urine Urobilinogen 2.0 H (0.2-1.0) EU/dL Ur Leukocyte Esterase Small H (NEGATIVE) Urine RBC 5-10 H (0-5) Urine WBC 0-5 (0-5) Ur Epithelial Cells Moderate Amorphous Sediment Not seen Urine Bacteria Few Urine Mucus Not seen Urine HCG, Qual Negative Urine Opiates Screen Negative (NEGATIVE) Ur Oxycodone Screen Negative (NEGATIVE) Urine Methadone Screen Negative (NEGATIVE) Ur Propoxyphene Screen Negative (NEGATIVE) Ur Barbiturates Screen Negative (NEGATIVE) Ur Tricyclics Screen Negative (NEGATIVE) Ur Phencyclidine Scrn Negative (NEGATIVE) Ur Amphetamine Screen Negative (NEGATIVE) U Methamphetamines Scrn Negative (NEGATIVE) Urine MDMA Screen Negative (NEGATIVE) U Benzodiazepines Scrn Negative (NEGATIVE) U Cocaine Metab Screen Negative (NEGATIVE) U Marijuana (THC) Screen Presumptive positive H (NEGATIVE) Meds: Medications Generic Name Dose Route Start Last Admin Trade Name Freq PRN Reason Stop Dose Admin Lactated Ringer's 1,000 mls @ 999 mls/hr 04/07/19 23:45 04/07/19 23:56 Ringers, Lactated IV 999 mls/hr ASDIRECTED NICOLA Administration Sodium Chloride 10 ml 04/07/19 23:33 04/07/19 23:57 Saline Flush FLUSH 10 ml ASDIRECTED PRN Administration Keep Vein Open Discontinued Medications Generic Name Dose Route Start Last Admin Trade Name Freq PRN Reason Stop Dose Admin Fentanyl 100 mcg 04/07/19 23:35 04/07/19 23:58 Sublimaze IVPUSH 04/07/19 23:36 100 mcg ONETIME ONE Administration Sodium Chloride 70 mls @ 3 mls/sec 04/08/19 00:04 04/08/19 00:16 Normal Saline IV 04/08/19 00:05 3 mls/sec ASDIRECTED STA Administration Iopamidol 100 ml 04/08/19 00:04 04/08/19 00:16 Isovue-300 (61%) IV 04/08/19 00:05 100 ml . DIRECTED STA Administration Prochlorperazine Edisylate 5 mg 04/07/19 23:35 04/07/19 23:59 Compazine IVPUSH 04/07/19 23:36 5 mg ONETIME ONE Administration Departure - Departure Time of Disposition: 01:31 Disposition: Home, Self-Care 01 Condition: Fair Clinical Impression: Constipation Qualifiers: Constipation type: slow transit constipation Qualified Code(s): K59.01 - Slow transit constipation - Discharge Information Instructions: Constipation, Adult Referrals: Beti Alfonso PA-C [Primary Care Provider] - Forms: ED Department Discharge Additional Instructions: Try the MiraLAX colonoscopy prep, please contact your RESIDENTIAL 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 DIRECTED 04/07/19 23:45 Lactated Ringers [Ringers, Lactated] 1,000 ml IV ASDIRECTED - Assessment/Plan Last 24 Hours: My Active Orders 04/07/19 23:33 Sodium Chloride 0.9% [Saline Flush] 10 ml FLUSH ASDIRECTED PRN Peripheral IV Insertion Adult [OM.PC] Urgent 04/07/19 23:34 Peripheral IV Care [RC] . DIRECTED 04/07/19 23:45 Lactated Ringers [Ringers, Lactated] 1,000 ml IV ASDIRECTED Plan: Assessment Acuity = acute Site and laterality = functional constipation Etiology = slow transit time Manifestations = abdominal pain Location of injury = Home Lab values = CBC CMP unremarkable urinalysis does have a trace amount of blood consistent with a hematuria urine drug screen positive for cannabis Plan Good relief in the emergency department combination of fentanyl and Compazine, I did review lab results and CT scan results with them plans discharge home she is going to try MiraLAX colonoscopy prep follow-up with RESIDENTIAL GREEN BUILDING DESIGNER next week This note was dictated using [email or web address] voice recognition software please call with any questions on syntax or grammar.
[2019-04-07] MEDS ORDERED: Lactated Ringers 1,000 ML IV SCH (23:45)
[2019-04-08] MEDS ORDERED: Iopamidol 612 MG/ML 100 ML Bottle IV STA (00:04)
--- NOTE | 2019-04-08 00:52 | CRLCT ---
INDICATION: Abdominal pain that started today, postop day 12 status post hysterectomy, normal white blood cell count TECHNIQUE: CT abdomen and pelvis acquired with 100 cc Isovue-300 IV contrast. COMPARISON: January 17, 2019 FINDINGS: Lower chest: Unremarkable. Liver: Unremarkable. Spleen: Unremarkable. Pancreas: Unremarkable. Gallbladder and bile ducts: Unremarkable. Adrenal glands: Unremarkable. Kidneys: Unremarkable. GI tract: Moderate amount of feces in the colon. Vascular structures: Unremarkable. Lymph nodes: Unremarkable. Miscellaneous: Small fat containing umbilical hernia. Pelvic Organs: Prominent adnexal vessels again noted. Status post hysterectomy. Mild fat stranding in the pelvis with small amount free fluid. No definite abscess identified. Bones: Unremarkable for age. IMPRESSION: There is a small amount of free fluid and fat stranding in the pelvis. This is somewhat unusual for postop day 12 status post hysterectomy, although no definite abscess identified. Consider repeat CT pelvis with IV contrast if pain persists. Moderate amount of feces in the colon. Findings discussed with Officer at 12:48 a.m. on April 08, 2019. Please note that all CT scans at this facility use dose modulation, iterative reconstruction, and/or weight-based dosing when appropriate to reduce radiation dose to as low as reasonably achievable. Dictated by Flor Gilbert MD @ Apr 08 2019 12:39AM Signed by Dr. Flor Gilbert @ Apr 08 2019 12:50AM
== END 2019-04-08 01:55 | disposition home or self-care (01) ==
LOC: JP.ED 23:04
DX: K59.01 Slow transit constipation (principal); Z91.013 Allergy to seafood; Z91.040 Latex allergy status
CPT/HCPCS: 36415; 74177; 80053; 80305; 81001; 81025; 83605; 83690; 84484; 85025; 96374; 96375; 99285; J0780; J3010; J7050; J7120; Q9967

== ENCOUNTER 2019-08-19 18:46 | Emergency (ER) | payer MEDICAID ==
[2019-08-19 18:57] VITALS: BP 112/76; PULSE 69
[2019-08-19] MEDS ORDERED: Sodium Chloride 0.9% 10 ML Syringe FLUSH PRN (19:25)
[2019-08-19] MEDS ORDERED: diphenhydrAMINE 50 MG/ML SDV IVPUSH ONE (19:26)
[2019-08-19] MEDS ORDERED: Sodium Chloride 0.9% 1,000 ML IV ONE (19:26)
[2019-08-19] MEDS ORDERED: Metoclopramide 10 MG/2 ML SDV IVPUSH ONE (19:26)
--- NOTE | 2019-08-19 19:28 | EDM.PDOC ---
ED HPI GENERAL MEDICAL PROBLEM - General Chief Complaint: General Stated Complaint: SOB , VOMITING, UNABLE TO KEEP FLUIDS DOWN Time Seen by Provider: 08/19/19 19:15 Source of Information: Reports: Patient History Limitations: Reports: No Limitations - History of Present Illness INITIAL COMMENTS - FREE TEXT/NARRATIVE: Jerica is a 24 year old female, who presents to the ED today with concerns of heat exhaustion. Patient has been outside for several hours in the sun and heat the last couple of days. Patient reports frontal headache, nausea and vomiting today. She did sustain a sun burn to her chest. Patient denies any fever/trauma or diarrhea. Patient denies any URI symptoms. Patient took ibuprofen for her headache earlier this afternoon with no relief in her symptoms. Patient denies any other complaints. Onset: Gradual Duration: Day(s): (1) Headache Pain Score (Numeric/FACES): 8 - Related Data Allergies Allergy/AdvReac Type Severity Reaction Status Date / Time Fish Containing Products Allergy Hives Verified 08/19/19 18:59 Latex, Natural Rubber Allergy Hives Verified 08/19/19 18:59 Home Meds: Home Meds Ondansetron [Ondansetron ODT] 4 mg PO ASDIRECTED 04/07/19 [History] estradioL [Estradiol] 1 mg PO DAILY 08/19/19 [History] Past Medical History HEENT History: Reports: None Cardiovascular History: Reports: Angina Gastrointestinal History: Reports: Other (See Below) Other Gastrointestinal History: abd pain today Genitourinary History: Reports: UTI, Recurrent 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: Endometriosis, Musculoskeletal History: Reports: Fracture, Other (See Below) Other Musculoskeletal History: L wrist Neurological History: Reports: Concussion Other Neuro History: 2010 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 Social & Family History - Family History Cardiac: Reports: None - Tobacco Use Smoking Status *Q: Light Tobacco Smoker Years of Tobacco use: 15 Packs/Tins Daily: 0.1 - Caffeine Use Caffeine Use: Reports: Soda - Recreational Drug Use Recreational Drug Use: Yes Recreational Drug Type: Reports: Marijuana/Hashish Recreational Drug Use Frequency: Monthly ED ROS GENERAL - Review of Systems Review Of Systems: Comprehensive ROS is negative, except as noted in HPI. ED EXAM, GENERAL - Physical Exam Exam: See Below Exam Limited By: Uncooperative General Appearance: Alert, No Apparent Distress Eye Exam: Bilateral Eye: EOMI, PERRL Ears: Normal External Exam Nose: Normal Inspection Throat/Mouth: Normal Inspection, Normal Oropharynx Head: Atraumatic Neck: Normal Inspection Respiratory/Chest: No Respiratory Distress Cardiovascular: Normal Peripheral Pulses GI/Abdominal: Normal Bowel Sounds, Soft, Non-Tender (Female) Exam: Normal External Exam Back Exam: Normal Inspection Extremities: Normal Inspection Neurological: Alert, Oriented, CN II-XII Intact Skin Exam: Warm, Dry, Other (1st degree sun burn to chest) Lymphatic: No Adenopathy Course - Vital Signs Last Recorded V/S: Last Vital Signs Temp 36.2 C 08/19/19 18:59 Pulse 69 08/19/19 18:59 Resp 20 08/19/19 18:59 BP 112/76 08/19/19 18:59 Pulse Ox 98 08/19/19 18:59 Jerica is a 24 year old female, presents to the ED today with c/o headache and concern for heat exposure and sunburn. Please refer to HPI and focused exam. Patient was started on IV NS here, given Reglan and Benadryl for headache. Blood work obtained, CBC and CMP reassuring. Patient feeling better with medications and fluids and I feel she is stable to be discharged home. Patient encouraged to stay well hydrated, stay cool for the next couple of days. Patient using aloe spray on sunburn which she can continue to do at home. Ibuprofen/Tylenol as needed for pain per bottle instructions. Patient can follow up with PCP as needed. Reasons to return to the ED discussed, patient agreeable and discharged home in stable condition with a front loader residential driver. - Orders/Labs/Meds Orders: Active Orders 24 hr Category Date Time Status Peripheral IV Care [RC] . DIRECTED Care 08/19/19 19:25 Active Sodium Chloride 0.9% [Normal Saline] 1,000 ml Med 07/06/20 19:26 Active IV .BOLUS Sodium Chloride 0.9% [Saline Flush] Med 08/19/19 19:25 Active 10 ml FLUSH ASDIRECTED PRN Peripheral IV Insertion Adult [OM.PC] Routine Oth 08/19/19 19:25 Ordered Medication Orders Sodium Chloride (Normal Saline) 1,000 mls @ 999 mls/hr IV .BOLUS ONE Stop: 08/19/19 20:26 Last Admin: 08/19/19 19:37 Dose: 999 mls/hr Documented by: RASHAWN Sodium Chloride (Saline Flush) 10 ml FLUSH ASDIRECTED PRN PRN Reason: Keep Vein Open Labs: Laboratory Tests 08/19/19 08/19/19 Range/Units 19:39 19:39 WBC 5.4 (4.5-11.0) K/uL RBC 4.33 (3.30-5.50) M/uL Hgb 11.5 L (12.0-15.0) g/dL Hct 36.1 (36.0-48.0) % MCV 83 (80-98) fL MCH 27 (27-31) pg MCHC 32 (32-36) % Plt Count 151 (150-400) K/uL Neut % (Auto) 63 (36-66) % Lymph % (Auto) 28 (24-44) % Woodward % (Auto) 5 (2-6) % Eos % (Auto) 4 (2-4) % Baso % (Auto) 1 (0-1) % Sodium 143 (140-148) mmol/L Potassium 3.6 (3.6-5.2) mmol/L Chloride 106 (100-108) mmol/L Carbon Dioxide 29 (21-32) mmol/L Anion Gap 8.0 (5.0-14.0) mmol/L BUN 11 D (7-18) mg/dL Creatinine 1.0 (0.6-1.0) mg/dL Est Cr Clr Drug Dosing 64.33 mL/min Estimated GFR (MDRD) > 60 (>60) Glucose 105 (74-106) mg/dL Calcium 9.5 (8.5-10.1) mg/dL Total Bilirubin 0.4 (0.2-1.0) mg/dL AST 22 (15-37) U/L ALT 30 (12-78) U/L Alkaline Phosphatase 84 (46-116) U/L Total Protein 7.9 (6.4-8.2) g/dL Albumin 3.8 (3.4-5.0) g/dL Globulin 4.1 H (2.3-3.5) g/dL Albumin/Globulin Ratio 0.9 L (1.2-2.2) Meds: Medications Generic Name Dose Route Start Last Admin Trade Name Freq PRN Reason Stop Dose Admin Sodium Chloride 1,000 mls @ 999 mls/hr 08/19/19 19:26 08/19/19 19:37 Normal Saline IV 08/19/19 20:26 999 mls/hr .BOLUS ONE Administration Sodium Chloride 10 ml 08/19/19 19:25 Saline Flush FLUSH ASDIRECTED PRN Keep Vein Open Discontinued Medications Generic Name Dose Route Start Last Admin Trade Name Freq PRN Reason Stop Dose Admin Diphenhydramine HCl 50 mg 08/19/19 19:26 08/19/19 19:45 Benadryl IVPUSH 08/19/19 19:27 50 mg ONETIME ONE Administration Hydromorphone HCl 0.5 mg 08/19/19 20:05 Dilaudid IVPUSH 08/19/19 20:06 ONETIME ONE Metoclopramide HCl 10 mg 08/19/19 19:26 08/19/19 19:43 Reglan IVPUSH 08/19/19 19:27 10 mg ONETIME ONE Administration Departure - Departure Time of Disposition: 21:00 Disposition: Home, Self-Care 01 Condition: Good Clinical Impression: Sunburn of first degree Heat exposure Qualifiers: Encounter type: initial encounter Qualified Code(s): T67.9XXA - Effect of heat and light, unspecified, initial encounter - Discharge Information Instructions: Sunburn, Adult, [id number], Heat Exhaustion Referrals: Beti Alfonso PA-C [Primary Care Provider] - Forms: ED Department Discharge Additional Instructions: Stay out of heat/sun for a few days, Stay well hydrated, Tylenol/Ibuprofen as needed for pain/headache per bottle instructions. Continue with Aloe to sunburn for the next 4-5 days Sepsis Event Note (ED) - Evaluation Sepsis Screening Result: No Definite Risk - Focused Exam Vital Signs: Vital Signs Temp Pulse Resp BP Pulse Ox 08/19/19 18:59 36.2 C 69 20 112/76 98 08/19/19 18:55 36.2 C 69 20 112/76 98 - My Orders Last 24 Hours: My Active Orders 08/19/19 19:25 Peripheral IV Care [RC] . DIRECTED Sodium Chloride 0.9% [Saline Flush] 10 ml FLUSH ASDIRECTED PRN Peripheral IV Insertion Adult [OM.PC] Routine 08/19/19 19:26 Sodium Chloride 0.9% [Normal Saline] 1,000 ml IV .BOLUS - Assessment/Plan Last 24 Hours: My Active Orders 08/19/19 19:25 Peripheral IV Care [RC] . DIRECTED Sodium Chloride 0.9% [Saline Flush] 10 ml FLUSH ASDIRECTED PRN Peripheral IV Insertion Adult [OM.PC] Routine 08/19/19 19:26 Sodium Chloride 0.9% [Normal Saline] 1,000 ml IV .BOLUS
[2019-08-19] MEDS ORDERED: HYDROmorphone 0.5 MG/0.5 ML Syringe IVPUSH ONE (20:05)
== END 2019-08-19 20:56 | disposition home or self-care (01) ==
LOC: JP.ED 18:46
DX: L55.0 Sunburn of first degree (principal); R51 Headache; R11.2 Nausea with vomiting, unspecified; F17.210 Nicotine dependence, cigarettes, uncomplicated; Z91.013 Allergy to seafood; Z91.040 Latex allergy status; Z79.899 Other long term (current) drug therapy
CPT/HCPCS: 36415; 80053; 85025; 96361; 96374; 96375; 99284; J1170; J1200; J2765; J7030; 99282

== ENCOUNTER 2019-11-26 20:26 | Emergency (ER) | payer MEDICAID ==
--- NOTE | 2019-11-26 21:06 | EDM.PDOC ---
ED HPI GENERAL MEDICAL PROBLEM - General Chief Complaint: Abdominal Pain Stated Complaint: STOMACH PAINS Time Seen by Provider: 11/26/19 20:35 Source of Information: Reports: Patient History Limitations: Reports: Other (Slow responses to questions.) - History of Present Illness INITIAL COMMENTS - FREE TEXT/NARRATIVE: Patient presents by private vehicle tonight describing ongoing, months, abdominal pain as headache, nausea, vomiting over the last 48 hours or so. She has had a persistent history of abdominal pain for months. She underwent hysterectomy and endometriosis was suspected/found. It was hoped that with removal of the uterus she would have less abdominal pain but apparently that is not the case. She takes nausea medication every day although according to 1 of her doctors she should have stopped it a long time ago. In the last 2 days, she has been lying around sleeping and not doing anything to speak of in terms of activity. Her appetite is diminished and if she eats or drinks to start anything she will vomit clear liquid. She also describes feeling hot and cold, having a generalized headache, having some left shoulder and arm regional pain. They Googled her multitude of symptoms tonight and were told that it could represent everything from appendicitis to Crohn's disease to endometriosis. They contacted a nurse advice line who recommended that he come in and be evaluated tonight, which they did. No one else ill around her. No new medications or other changes in health. Onset: Gradual Duration: Day(s): (Headache and nausea), Week(s): (Ongoing abdominal pain) Location: Reports: Head, Abdomen Quality: Reports: Ache, Dull Severity: Moderate Improves with: Reports: None Worsens with: Reports: Eating Associated Symptoms: Reports: Malaise, Nausea/Vomiting. Denies: Fever/Chills Treatments FABRICATOR ARTIFICIAL BREAST: Reports: Aspirin, Other Medication(s) (Nausea and gas medication.) - Related Data Allergies Allergy/AdvReac Type Severity Reaction Status Date / Time Fish Containing Products Allergy Hives Verified 11/26/19 20:49 Latex, Natural Rubber Allergy Hives Verified 11/26/19 20:49 Home Meds: Home Meds Ondansetron [Ondansetron ODT] 4 mg PO ASDIRECTED 04/07/19 [History] estradioL [Estradiol] 1 mg PO DAILY 08/19/19 [History] Past Medical History HEENT History: Reports: None Cardiovascular History: Reports: Angina Gastrointestinal History: Reports: Other (See Below) Other Gastrointestinal History: abd pain today Genitourinary History: Reports: UTI, 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 History: Reports: Endometriosis, Musculoskeletal History: Reports: Fracture, Other (See Below) Other Musculoskeletal History: L wrist Neurological History: Reports: Concussion Other Neuro History: 2010 CONCUSSION FELL OUT OF HAY LOFT Psychiatric History: Reports: Depression Endocrine/Metabolic History: Reports: Diabetes, Gestational Hematologic History: Reports: Other (See Below) Other Hematologic History: microcytic anemia - Infectious Disease History Infectious Disease History: Reports: Chicken Pox - Past Surgical History HEENT Surgical History: Reports: Adenoidectomy, Tonsillectomy Cardiovascular Surgical History: Reports: None Female Surgical History: Reports: Hysterectomy, Tubal Ligation, Other (See Below) Other Female Surgeries/Procedures: 03/26/2019 vaginal hysterectomy at [facility] in . Social & Family History - Family History Cardiac: Reports: None - Tobacco Use Tobacco Use Status *Q: Never Tobacco User - Caffeine Use Caffeine Use: Reports: Soda - Recreational Drug Use Recreational Drug Type: Reports: Marijuana/Hashish Recreational Drug Use Frequency: Daily ED ROS GENERAL - Review of Systems Review Of Systems: See Below Constitutional: Reports: Malaise, Weakness, Fatigue. Denies: Fever HEENT: Reports: No Symptoms Respiratory: Reports: No Symptoms Cardiovascular: Reports: No Symptoms Endocrine: Reports: Fatigue GI/Abdominal: Reports: Abdominal Pain (Lower third of the abdomen.), Anorexia, Nausea, Vomiting. Denies: Constipation, Distension : Reports: No Symptoms Musculoskeletal: Reports: Joint Pain (Left shoulder region.) ED EXAM, GI/ABD - Physical Exam Exam: See Below Text/Narrative:: This is a quiet female who pulls the blanket up over her head and face when I entered the room to speak with her. The room lights are dimmed. Exam Limited By: Other (Brief responses to questions. Her having another provides additional historical information.) General Appearance: Mild Distress. No: Active Emesis Throat/Mouth: Normal Inspection Head: Atraumatic Neck: Supple Respiratory/Chest: No Respiratory Distress Cardiovascular: Regular Rate, Rhythm GI/Abdominal Exam: Soft, Abnormal Bowel Sounds (Diminished.). No: No Mass, Distended, Guarding, Rigid Back Exam: Normal Inspection Extremities: Normal Inspection Course - Vital Signs Last Recorded V/S: Last Vital Signs Temp 36.6 C 11/26/19 20:49 Pulse 61 11/26/19 22:03 Resp 16 11/26/19 21:35 BP 110/71 11/26/19 22:03 Pulse Ox 99 11/26/19 21:35 - Orders/Labs/Meds Orders: Active Orders 24 hr Category Date Time Status Abdomen 1V Upright [CR] Stat Exams 11/26/19 21:18 Ordered Sodium Chloride 0.9% [Saline Flush] Med 11/26/19 21:18 Ordered 10 ml FLUSH ASDIRECTED PRN Saline Lock Insert [OM.PC] Routine Oth 11/26/19 21:18 Ordered Medication Orders Sodium Chloride (Saline Flush) 10 ml FLUSH ASDIRECTED PRN PRN Reason: Keep Vein Open Last Admin: 11/26/19 22:16 Dose: 10 ml Documented by: ELISEO Labs: Laboratory Tests 11/26/19 11/26/19 Range/Units 21:35 21:35 WBC 7.0 (4.5-11.0) K/uL RBC 4.43 (3.30-5.50) M/uL Hgb 11.7 L (12.0-15.0) g/dL Hct 37.5 (36.0-48.0) % MCV 85 (80-98) fL MCH 26 L (27-31) pg MCHC 31 L (32-36) % Plt Count 175 (150-400) K/uL Neut % (Auto) 53 (36-66) % Lymph % (Auto) 29 (24-44) % Bailey % (Auto) 5 (2-6) % Eos % (Auto) 13 H (2-4) % Baso % (Auto) 0 (0-1) % Sodium 144 (140-148) mmol/L Potassium 4.0 (3.6-5.2) mmol/L Chloride 109 H (100-108) mmol/L Carbon Dioxide 25 (21-32) mmol/L Anion Gap 14.0 (5.0-14.0) mmol/L BUN 12 (7-18) mg/dL Creatinine 1.0 (0.6-1.0) mg/dL Est Cr Clr Drug Dosing 64.33 mL/min Estimated GFR (MDRD) > 60 (>60) Glucose 84 (74-106) mg/dL Calcium 8.8 (8.5-10.1) mg/dL Total Bilirubin 0.3 (0.2-1.0) mg/dL AST 22 (15-37) U/L ALT 28 (12-78) U/L Alkaline Phosphatase 81 (46-116) U/L C-Reactive Protein 0.53 H (0.0-0.3) mg/dL Total Protein 7.4 (6.4-8.2) g/dL Albumin 3.6 (3.4-5.0) g/dL Globulin 3.8 H (2.3-3.5) g/dL Albumin/Globulin Ratio 1.0 L (1.2-2.2) Lipase 121 (73-393) U/L Meds: Medications Generic Name Dose Route Start Last Admin Trade Name Freq PRN Reason Stop Dose Admin Sodium Chloride 10 ml 11/26/19 21:18 11/26/19 22:16 Saline Flush FLUSH 10 ml ASDIRECTED PRN Administration Keep Vein Open Discontinued Medications Generic Name Dose Route Start Last Admin Trade Name Freq PRN Reason Stop Dose Admin Haloperidol Lactate 2 mg 11/26/19 21:56 11/26/19 22:16 Haldol IVPUSH 11/26/19 21:57 2 mg ONETIME ONE Administration Sodium Chloride 1,000 mls @ 999 mls/hr 11/26/19 21:18 11/26/19 21:27 Normal Saline IV 11/26/19 22:18 999 mls/hr .BOLUS ONE Administration Ondansetron HCl 4 mg 11/26/19 21:20 11/26/19 21:33 Zofran IVPUSH 11/26/19 21:21 4 mg ONETIME ONE Administration - Re-Assessments/Exams Free Text/Narrative Re-Assessment/Exam: 11/26/19 21:28 Patient will be given 1 L of normal saline by rapid infusion along with 4 mg of Zofran IV. Upright abdomen x-ray will be used to assess for ileus. 11/26/19 21:56 Patient's significant other came to the nursing station on behalf of the patient asking about something to use for pain. Previously, the patient stated that Toradol gives her an upset stomach and makes her lightheaded. Given her decreased bowel sounds etc., narcotics would be a poor choice because they may only worsen her nausea and vomiting. We will use haloperidol 2 mg IV. 11/26/19 22:46 After receiving the Haldol 2 mg, the patient's headache and GI symptoms were gone. She was resting comfortably on the bed. Review of her x-ray shows a significant amount of stool in the descending colon but no air-fluid levels or other obstructive change. I will have her use a bulk bottle of MiraLAX powder divided into separate 1 L volumes of Gatorade or Powerade. See discharge instructions for additional details. She may need to use a Fleets enema at home as well. She needs to be active on a regular basis to reduce constipation risk. Reducing use of any substances that can reduce her intestine activity will be helpful also. Recheck with primary care if no improvement over this next 5 or so days. Departure - Departure Time of Disposition: 22:41 Disposition: Home, Self-Care 01 Clinical Impression: Abdominal pain Qualifiers: Abdominal location: lower abdomen, unspecified Qualified Code(s): R10.30 - Lower abdominal pain, unspecified Nausea & vomiting Qualifiers: Vomiting type: unspecified Vomiting Intractability: non-intractable Qualified Code(s): R11.2 - Nausea with vomiting, unspecified Headache Qualifiers: Headache type: unspecified Headache chronicity pattern: unspecified pattern Intractability: not intractable Qualified Code(s): R51.9 - Headache, unspecified Constipation Qualifiers: Constipation type: unspecified constipation type Qualified Code(s): K59.00 - Constipation, unspecified - Discharge Information Referrals: Beti Alfonso PA-C [Primary Care Provider] - Forms: ED Department Discharge Additional Instructions: By an entire bottle, 238 g, of MiraLAX powder. Get 2 separate 1 L bottles of Gatorade or Powerade. Divide the entire amount of MiraLAX powder between the 2 bottles. Drink the first liter over 1 hour, weight 2 hours, then drink the second 1 liter bottle. That will help to pull water into the intestines and soften up the hard stool. She may need a prepackaged enema as well if the last part of her stool is super super hard. I would begin with the MiraLAX cleansing mix however. Being up and around will help reduce constipation risk. Avoiding any substances that would slow the intestines down will be helpful as well. There were no alarming findings tonight fortunately. Recheck with primary care if there is no improvement over the next 4 or 5 days. Sepsis Event Note (ED) - Evaluation Sepsis Screening Result: No Definite Risk - Focused Exam Vital Signs: Vital Signs Temp Pulse Resp BP Pulse Ox 11/26/19 22:03 61 110/71 11/26/19 21:35 69 16 110/69 99 11/26/19 20:49 36.6 C 87 16 115/73 98 11/26/19 20:43 36.6 C 87 16 115/73 98 - My Orders Last 24 Hours: My Active Orders 11/26/19 21:18 Abdomen 1V Upright [CR] Stat Sodium Chloride 0.9% [Saline Flush] 10 ml FLUSH ASDIRECTED PRN Saline Lock Insert [OM.PC] Routine - Assessment/Plan Last 24 Hours: My Active Orders 11/26/19 21:18 Abdomen 1V Upright [CR] Stat Sodium Chloride 0.9% [Saline Flush] 10 ml FLUSH ASDIRECTED PRN Saline Lock Insert [OM.PC] Routine
[2019-11-26] MEDS ORDERED: Sodium Chloride 0.9% 1,000 ML IV ONE (21:18)
[2019-11-26] MEDS ORDERED: Sodium Chloride 0.9% 10 ML Syringe FLUSH PRN (21:18)
[2019-11-26] MEDS ORDERED: Ondansetron 4 MG/2 ML SDV IVPUSH ONE (21:20)
[2019-11-26] MEDS ORDERED: Haloperidol Lactate 5 MG/ML SDV IVPUSH ONE (21:56)
[2019-11-26 22:04] VITALS: BP 110/71; PULSE 61
--- NOTE | 2019-11-27 09:25 | CR ---
Abdomen 1V Upright CLINICAL HISTORY: Nausea and vomiting FINDINGS: No free air is identified. Visualized small intestinal configuration is nonacute. There is some fecal retention. Visualized lung mata are clear IMPRESSION: Limited study Nonacute intestinal gas pattern Fecal retention
== END 2019-11-26 22:55 | disposition home or self-care (01) ==
LOC: JP.ED 20:26
DX: K59.00 Constipation, unspecified (principal); R11.2 Nausea with vomiting, unspecified; R51.9 Headache, unspecified; Z91.040 Latex allergy status; Z91.013 Allergy to seafood; Z90.710 Acquired absence of both cervix and uterus; Z98.51 Tubal ligation status
CPT/HCPCS: 36415; 74018; 80053; 83690; 85025; 86140; 96374; 96375; 99284; J1630; J2405; J7030; 99282

== ENCOUNTER 2020-01-11 23:47 | Emergency (ER) | payer MEDICAID ==
[2020-01-12 00:11] VITALS: BP 114/84; PULSE 64
--- NOTE | 2020-01-12 00:23 | EDM.PDOC ---
ED HPI GENERAL MEDICAL PROBLEM - General Chief Complaint: General Stated Complaint: MIGRAINE Time Seen by Provider: 01/12/20 00:02 Source of Information: Reports: Patient History Limitations: Reports: No Limitations - History of Present Illness INITIAL COMMENTS - FREE TEXT/NARRATIVE: Patient presents to the ER tonight due to continued migraine ROSADO that she reports present not getting better with normal home care of ASA, caffiene/soda, smoking or marijuana so she came to the ER. She also reports + photophobia, phonophobia, sensitive to smell-specifically garlic. she states she is also having chills/shaking but no fevers or other symptoms such as body aches/cough/sinus or congestion/sore throat. She has reported nausea that initially she states she is unable to eat/drink but then she states she is able to drink 7-up/sprite and eat soup. SHe then states she has chronic nausea, she awakens every morning with it, has zofran at home but does not take any longer (first because a doctor told her not to take it too much and then because it gave her upset stomach/stomach pain/constipation). She reports that headache is R-temporal across forhead to L-temporal areas, her typical migraine pain/throbbing in nature rated 6/10. she also report having L-lower rib/lateral rib cage chest discomfort. She has not seen her PCM recently for her migraines, she reports that she has average of 2/mos, rarely comes to the ER for them as soda/caffiend, ADA, marijuana usually help PMH--chronic nausea/daily am episodes reported, migraine headaches, hormone replacement therapy s/p hysterectomy Meds--estradiaol Allergies--latex Tob--2 cig / week EtOH--denies Drugs--marijuana, last use approx 1800 this past evening Onset: Gradual Onset Date: 01/10/20 Duration: Getting Worse Location: Reports: Head (typical migraine location from right lutheran-across forehead-left lutheran) Quality: Reports: Pressure, Throbbing Severity: Moderate (rates 6/10) Improves with: Reports: Cold Therapy, Medication (ASA--last took 81mg x 2 at 1700), Rest, Other (usually caffiene or smoking helps but not today) Associated Symptoms: Reports: Fever/Chills, Nausea/Vomiting Treatments SERVICE DISMANTLER: Reports: Aspirin, Cold Therapy, Other (see below) (soda, marijuana approx 1800) headache Pain Score (Numeric/FACES): 6 epigastric pain Pain Score (Numeric/FACES): 3 - Related Data Allergies Allergy/AdvReac Type Severity Reaction Status Date / Time Fish Containing Products Allergy Hives Verified 01/12/20 00:06 Latex, Natural Rubber Allergy Hives Verified 01/12/20 00:06 Home Meds: Home Meds Ondansetron [Ondansetron ODT] 4 mg PO ASDIRECTED 04/07/19 [History] estradioL [Estradiol] 1 mg PO DAILY 08/19/19 [History] Aspirin 162 mg PO ASDIRECTED PRN 01/12/20 [History] Past Medical History HEENT History: Reports: None Cardiovascular History: Reports: Angina Gastrointestinal History: Reports: Other (See Below) Other Gastrointestinal History: abd pain today Genitourinary History: Reports: UTI, Recurrent CONVERSION MAN History: Reports: Endometriosis, Musculoskeletal History: Reports: Fracture, Other (See Below) Other Musculoskeletal History: L wrist Neurological History: Reports: Concussion Other Neuro History: 2010 CONCUSSION FELL OUT OF [employer] Psychiatric History: Reports: Depression Endocrine/Metabolic History: Reports: Diabetes, Gestational Hematologic History: Reports: Other (See Below) Other Hematologic History: microcytic anemia - Infectious Disease History Infectious Disease History: Reports: Chicken Pox - Past Surgical History HEENT Surgical History: Reports: Adenoidectomy, Tonsillectomy Cardiovascular Surgical History: Reports: None Female Surgical History: Reports: Hysterectomy, Tubal Ligation, Other (See Below) Other Female Surgeries/Procedures: 03/26/2019 vaginal hysterectomy at [facility] in . Social & Family History - Family History Cardiac: Reports: None - Tobacco Use Tobacco Use Status *Q: Light Tobacco User Years of Tobacco use: 11 Packs/Tins Daily: 0.1 - Caffeine Use Caffeine Use: Reports: Soda - Recreational Drug Use Recreational Drug Use: Yes Drug Use in Last 12 Months: Yes Recreational Drug Type: Reports: Marijuana/Hashish ED ROS GENERAL - Review of Systems Review Of Systems: Comprehensive ROS is negative, except as noted in HPI. Constitutional: Reports: Chills, Fatigue HEENT: Reports: Other (photophobia, phonophobia, aversion to garlic) Respiratory: Reports: No Symptoms Cardiovascular: Reports: Chest Pain (lower left rib/lateral chest pain) Endocrine: Reports: No Symptoms GI/Abdominal: Reports: Nausea. Denies: Vomiting : Reports: No Symptoms Musculoskeletal: Reports: No Symptoms Skin: Reports: No Symptoms Neurological: Reports: Headache. 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 No: Normal Teeth (poor dentation noted -- missing/broken/dental decay) Head: Atraumatic, Normocephalic Neck: Normal Inspection, Supple, Non-Tender, Full Range of Motion. No: Lymphadenopathy (R), Lymphadenopathy (L) Respiratory/Chest: No Respiratory Distress (p/o 99-100% on RA, normal conversation not interrupted with SOB/dyspnea/difficulty breathing), Lungs Clear, Normal Breath Sounds, No Accessory Muscle Use, Chest Non-Tender Cardiovascular: Normal Peripheral Pulses, Regular Rate, Rhythm (tele--NSR, rate 74-75), No Edema, No Murmur GI/Abdominal: Normal Bowel Sounds, Soft, Non-Tender, Other (obese) (Female) Exam: Deferred Rectal (Female) Exam: Deferred Back Exam: Normal Inspection Extremities: Normal Inspection, Normal Range of Motion, Non-Tender, No Pedal Edema, Normal Capillary Refill Neurological: Alert, Oriented, CN II-XII Intact, Normal Cognition, No Motor/Sensory Deficits Psychiatric: Normal Affect, Normal Mood Skin Exam: Warm, Dry, Intact, Normal Color Lymphatic: No Adenopathy Course - Vital Signs Text/Narrative:: 0025--patient offered IV/IVF and medications but declined; she states she would rather just have a "shot"; she states her is present to drive her home. d/w her that will give IM meds for her migraine and test for COVID. she has zofran at home for her chronic nausea but has not been using, states she usually eats/drinks something in the morning and that helps more than the zofran. she states that she feels the zofran was giving her upset stomach and since stopping use this has resolved. it was recommended she f/u with her PCM on Monday for continued outpatient management of her migraine headache and that she would be recommended for home quarentine / self-isolation until COVID test returns. verbalized understanding/agreement with plan of care at this time Last Recorded V/S: Last Vital Signs Temp 97.7 F 01/12/20 00:11 Pulse 64 01/12/20 00:11 Resp 15 01/12/20 00:11 BP 114/84 01/12/20 00:11 Pulse Ox 99 01/12/20 00:11 Departure - Departure Time of Disposition: 00:41 Disposition: Home, Self-Care 01 Condition: Good Clinical Impression: Migraine headache, Person under investigation for COVID-19, Marijuana user - Discharge Information Instructions: Airborne Precautions, [id number], Recurrent Migraine Headache, Jquz-[id number], What You Need to Know About Marijuana Use, Droplet Precautions Referrals: Beti Alfonso PA-C [Primary Care Provider] - Additional Instructions: Contact your PCM in the next 3-5 days to follow up regarding chronic migraine headaches for further discussion of management options You have been tested in the [facility] for COVID, until you have been contacted with results you are to self-isolate/home quarentine, your test results should return in the next 3-5 days Ensure you are getting plenty of rest, drinking plenty of water/juice/sports drinks of choice; avoid excessive caffinated products or alcohol Sepsis Event Note (ED) - Evaluation Sepsis Screening Result: No Definite Risk - Focused Exam Vital Signs: Vital Signs Temp Pulse Resp BP Pulse Ox 01/12/20 00:11 97.7 F 64 15 114/84 99 01/12/20 00:10 97.7 F 64 15 114/84 99
[2020-01-12] MEDS ORDERED: Ketorolac 60 MG/2 ML SDV IM ONE (00:26)
[2020-01-12] MEDS ORDERED: diphenhydrAMINE 50 MG/ML SDV IM ONE (00:26)
[2020-01-12] MEDS ORDERED: Promethazine 25 MG/ML SDV IM ONE (00:26)
== END 2020-01-12 01:13 | disposition home or self-care (01) ==
LOC: JP.ED 23:47
DX: G43.909 Migraine, unspecified, not intractable, without status migrainosus (principal); F12.90 Cannabis use, unspecified, uncomplicated; R07.81 Pleurodynia; F17.200 Nicotine dependence, unspecified, uncomplicated; Z91.013 Allergy to seafood; Z91.040 Latex allergy status; Z79.899 Other long term (current) drug therapy; Z98.51 Tubal ligation status; Z90.710 Acquired absence of both cervix and uterus; Z90.49 Acquired absence of other specified parts of digestive tract; Z20.828 Contact with and (suspected) exposure to other viral communicable diseases
CPT/HCPCS: 87635; 96372; 99283; J1200; J1885; J2550; U0002

== ENCOUNTER 2020-04-17 01:50 | Emergency (ER) | payer MEDICAID ==
[2020-04-17 01:57] VITALS: BP 112/75; PULSE 80
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
[2020-04-17] MEDS ORDERED: Ondansetron 4 MG Tab.DIS PO ONE (02:28)
[2020-04-17] MEDS ORDERED: Ketorolac 30 MG/ML SDV IM ONE (03:22)
--- NOTE | 2020-04-17 03:37 | CRLCT ---
INDICATION: Status post fall with pain. COMPARISON: None available. TECHNIQUE: CT examination of the head was performed with 3 mm thick axial sections without intravenous contrast. Images were obtained from the vertex of the skull through the skull base, and I examined the images with the brain and bone windows. Please note that all CT scans at this facility use dose modulation, iterative reconstruction, and/or weight-based dosing when appropriate to reduce radiation dose to as low as reasonably achievable. FINDINGS: : The brain is normal in appearance for the patient`s age on today`s study, with no sign of mass lesion, mass effect, hemorrhage, or edema. The ventricles and sulci are normal in appearance for the patient`s age. The visualized portions of the orbits are normal in appearance. The visualized portions of the paranasal sinuses and mastoids are clear. The osseous structures are normal in their appearance with no sign of abnormality in the skull base or calvarium. IMPRESSION: Normal noncontrast CT of the head for the patient`s age. No sign of closed head injury. Please note that all CT scans at this facility use dose modulation, iterative reconstruction, and/or weight-based dosing when appropriate to reduce radiation dose to as low as reasonably achievable. Dictated by Gonzalo Shaw MD @ Apr 17 2020 3:33AM Signed by Dr. Gonzalo Shaw @ Apr 17 2020 3:34AM
--- NOTE | 2020-04-17 10:11 | CR ---
Shoulder Comp Lt, CLINICAL HISTORY: Fall, pain FINDINGS: There is no acute fracture or dislocation in the left shoulder. Articular surfaces are smooth. Impression: Negative Hip Min 2V or 3V Lt, CLINICAL HISTORY: Fall, pain FINDINGS: No fracture or dislocation is identified. Articular surfaces are smooth. Impression: Negative Ribs 2V w Chest Lt CLINICAL HISTORY: Fall, pain FINDINGS: No rib fractures identified. There is no pleural thickening pleural fluid or pneumothorax. Impression: Negative
== END 2020-04-17 03:37 | disposition home or self-care (01) ==
LOC: JP.ED 01:50
DX: S09.90XA Unspecified injury of head, initial encounter (principal); S20.212A Contusion of left front wall of thorax, initial encounter; S40.012A Contusion of left shoulder, initial encounter; S70.02XA Contusion of left hip, initial encounter; J45.909 Unspecified asthma, uncomplicated; Z91.013 Allergy to seafood; Z91.040 Latex allergy status; V00.141A Fall from scooter (nonmotorized), initial encounter
CPT/HCPCS: 70450; 71101; 73030; 73502; 96372; 99284; A9270; J1885

== ENCOUNTER 2021-03-22 10:55 | Emergency (ER) | payer MEDICAID ==
[2021-03-22 11:13] VITALS: BP 120/71; PULSE 106
[2021-03-22] MEDS ORDERED: Promethazine 12.5 MG in Sodium Chloride 0.9% 50 ML IV ONE (11:34)
[2021-03-22] MEDS ORDERED: Lactated Ringers 1,000 ML IV ONE (11:34)
[2021-03-22] MEDS ORDERED: Sodium Chloride 0.9% 10 ML Syringe FLUSH PRN (11:35)
[2021-03-22 11:50] LABS: CORONAVIRUS COVID-19 NAA POSITIVE (NEGATIVE)
[2021-03-22] MEDS ORDERED: Potassium Chloride 20 MEQ Tab.ER PO ONE (12:41)
== END 2021-03-22 13:40 | disposition home or self-care (01) ==
LOC: JP.ED 10:55
DX: U07.1 COVID-19 (principal); E87.6 Hypokalemia; F12.90 Cannabis use, unspecified, uncomplicated; J45.909 Unspecified asthma, uncomplicated; Z90.710 Acquired absence of both cervix and uterus; Z87.891 Personal history of nicotine dependence; Z91.040 Latex allergy status; Z91.013 Allergy to seafood; Z79.899 Other long term (current) drug therapy
CPT/HCPCS: 0241U; 36415; 80048; 80076; 83605; 84145; 84484; 85025; 85379; 85610; 85730; 86140; 93005; 96365; 99284; A9270; J2550; J7120

== ENCOUNTER 2021-12-08 00:47 | Emergency (ER) | payer MEDICAID ==
[2021-12-08 00:59] VITALS: BP 145/95; PULSE 93
[2021-12-08] MEDS ORDERED: Amoxicillin/Clavulanate K 875-125 MG Tab PO ONE (01:25)
[2021-12-08] MEDS ORDERED: Ketorolac 30 MG/ML SDV IM ONE (01:25)
== END 2021-12-08 02:01 | disposition home or self-care (01) ==
LOC: JP.ED 00:47
DX: K04.7 Periapical abscess without sinus (principal); Z91.013 Allergy to seafood; Z91.040 Latex allergy status; Z87.891 Personal history of nicotine dependence
CPT/HCPCS: 96372; 99282; J1885

== ENCOUNTER 2022-07-09 03:39 | Emergency (ER) | payer MEDICAID ==
[2022-07-09 03:58] VITALS: BP 110/78
[2022-07-09] MEDS ORDERED: Amoxicillin/Clavulanate K 875-125 MG Tab PO ONE (04:22)
[2022-07-09 04:35] VITALS: PULSE 101
[2022-07-09] MEDS ORDERED: Acetaminophen 500 MG Tab PO ONE (04:35)
== END 2022-07-09 04:50 | disposition home or self-care (01) ==
LOC: JP.ED 03:39
DX: K02.9 Dental caries, unspecified (principal); J45.909 Unspecified asthma, uncomplicated; Z91.013 Allergy to seafood; Z91.040 Latex allergy status
CPT/HCPCS: 99282; A9270

== ENCOUNTER 2023-04-09 01:30 | Emergency (ER) | payer MEDICAID ==
[2023-04-09 01:46] VITALS: BP 110/67; PULSE 69
== END 2023-04-09 02:02 | disposition home or self-care (01) ==
LOC: JP.ED 01:30
DX: F41.0 Panic disorder [episodic paroxysmal anxiety] (principal); Z91.040 Latex allergy status; Z91.013 Allergy to seafood; J45.909 Unspecified asthma, uncomplicated; Z79.51 Long term (current) use of inhaled steroids; Z79.899 Other long term (current) drug therapy
CPT/HCPCS: 99284

== ENCOUNTER 2024-05-24 04:08 | Emergency (ER) | payer MEDICAID ==
[2024-05-24 04:24] VITALS: BP 112/82; PULSE 58
== END 2024-05-24 04:41 | disposition home or self-care (01) ==
LOC: JP.ED 04:08
DX: K02.9 Dental caries, unspecified (principal); J45.909 Unspecified asthma, uncomplicated; Z91.040 Latex allergy status; Z91.013 Allergy to seafood; Z79.899 Other long term (current) drug therapy; Z90.49 Acquired absence of other specified parts of digestive tract; Z87.891 Personal history of nicotine dependence
CPT/HCPCS: 99282; 99283

== ENCOUNTER 2024-09-08 09:14 | Emergency (ER) | payer MEDICAID ==
[2024-09-08 09:44] VITALS: BP 126/82; PULSE 70
[2024-09-08] MEDS: Ketorolac 30 MG/ML SDV IM ONE (10:18)
== END 2024-09-08 10:38 | disposition home or self-care (01) ==
LOC: JP.ED 09:14
DX: K08.89 Other specified disorders of teeth and supporting structures (principal); J45.909 Unspecified asthma, uncomplicated; Z91.013 Allergy to seafood; Z91.040 Latex allergy status; Z79.51 Long term (current) use of inhaled steroids; Z79.899 Other long term (current) drug therapy; Z86.16 Personal history of COVID-19; Z87.891 Personal history of nicotine dependence
CPT/HCPCS: 96372; 99282; J1885; 99283